=== PATIENT | male | born 1955 | race Caucasian/White ===

== ENCOUNTER → 2017-08-10 | Outpatient (CLI) | payer BC ==
[2017-08-10 13:57] LABS: ALBUMIN 3.6 gm/dl (3.4-5.0); ALT/SGPT 32 U/L (12-78); AST/SGOT 19 U/L (15-37); BLOOD UREA NITROGEN 17 mg/dl (7-18); CALCIUM 8.7 mg/dl (8.5-10.1); CARBON DIOXIDE 30 mmol/L (21-32); CREATININE 1.03 mg/dl (0.60-1.40); GLUCOSE,FASTING 106 mg/dl (70-99); POTASSIUM 4.8 mmol/L (3.5-5.1); SODIUM 139 mmol/L (136-145)
[2017-08-10 14:00] LABS: ALKALINE PHOSPHATASE 47 U/L (45-117); CHOLESTEROL 196 mg/dl (0-200); LDL CHOLESTEROL CALCULATED 105 mg/dl; TOTAL PROTEIN 7.6 gm/dl (6.4-8.2)
== END | disposition home or self-care (01) ==
LOC: C.LABPBG 09:17
PROVIDERS: ATTEND Physician Assistant
DX: Z00.00 Encounter for general adult medical examination without abnormal findings (principal)

== ENCOUNTER → 2017-08-14 | Outpatient (CLI) | payer BC ==
[2017-08-14 13:09] LABS: HEMOGLOBIN A1C 5.4 % (4.5-5.6)
== END | disposition home or self-care (01) ==
LOC: C.LABPBG 09:49
PROVIDERS: ATTEND Internal Medicine
DX: R73.01 Impaired fasting glucose (principal)

== ENCOUNTER → 2017-10-26 | Outpatient (CLI) | payer OTHER ==
--- NOTE | 2017-10-27 13:26 | POLYSOMNOGRAPH REPORT ---
CLINICAL DATA: A 62-year-old male with BMI of [address] Richard Gloria with symptoms of snoring and fatigue. His Amo sleepiness score was 10/24. On the evening of 10/26/2017, a home sleep apnea test was performed using a [employer] type 3 monitor. RECORDING RESULTS: Total recording time was 10 hours. Patient's monitoring time and estimated sleep time was 10 hours. RESPIRATORY DATA: Moderate sleep apnea was documented. The ONEAL was 26. There were 83 obstructive apneic episodes and 177 hypopneic episodes recorded. The longest respiratory event was 49 seconds. OXIMETRY DATA: Nocturnal hypoxemia was seen. Oxygen donna was 74%. Mean saturation was 92%. Time below 89% was 44 minutes. HEART RATE DATA: Heart rates ranged from 61-74 beats per minute. SNORING DATA: Snoring was recorded throughout the night. SPINDLE SANDER'S COMMENTS: The patient said he did not sleep well and was not sure how much sleep he actually got. IMPRESSION: Moderate sleep apnea/hypopnea with an ONEAL of 26 with nocturnal hypoxemia. RECOMMENDATIONS: The patient may benefit from a repeat sleep study with CPAP, use of auto CPAP, or use of an oral appliance. Clinical correlation is needed. Sleep medicine consultation may be of benefit. MARTIN
== END | disposition home or self-care (01) ==
LOC: C.NEUR 08:35
PROVIDERS: ATTEND Internal Medicine
DX: G47.30 Sleep apnea, unspecified (principal); Z68.42 Body mass index [BMI] 45.0-49.9, adult; R53.82 Chronic fatigue, unspecified; R06.83 Snoring

== ENCOUNTER 2024-04-15 08:48 | Inpatient (IN) ==
--- NOTE | 2024-04-15 09:05 | Emergency Department Note ---
Impression & Plan Abdominal pain, acute, epigastric, Transaminitis, Total bilirubin, elevated ED Provider Note HISTORY OF PRESENT ILLNESS: Patient is a 69-year-old male presenting with chest pain and shortness of breath. Patient reports that he woke up this morning and he felt very nauseous and had substernal chest pressure. He states it felt like someone was sitting on his chest. He states he still having the chest pressure, but it is alleviated some from earlier. He reports that he thought he was going to vomit but has not. He states he felt short of breath with the chest pain. He denies ever having symptoms like this before. Denies any DVT or PE history. Denies any history of cardiac stents. Is not on any anticoagulation or antiplatelet therapy. He currently is complaining of nausea and 5 out of 10 chest pressure. He denies any headache or changes in vision. He locates the chest pain to the substernal and epigastric region. He denies any radiation of the pain. Denies any abdominal pain. Denies any diarrhea. ROS: as above PHYSICAL EXAM: Constitutional: Patient appears in no acute distress. Morbidly obese HENT: Head: Normocephalic and atraumatic. Eyes: EOMI, PERRL Mouth/Throat: Mucous membranes moist. Neck: Trachea midline. Neck supple. Cardiovascular: RRR, No murmurs, rubs or gallops. Intact distal pulses. Pulmonary/Chest: No respiratory distress. Breath sounds clear and equal bilaterally. No wheezes or rales. Abdominal: Abdomen soft, no rebound or guarding. Epigastric TTP Musculoskeletal: No edema, tenderness or deformity noted. Skin: Warm and dry. No rash, erythema, pallor or cyanosis Psychiatric: Appropriate mood and affect for situation. Neurological: Alert and keenly responsive. CN II-XII grossly intact, moving all extremities equally and fully. MDM: - Vitals signs showed hypertension - History obtained via patient. History as above. - Chronic conditions affecting care: morbid obesity; HTN; HLD; primary lateral sclerosis - Differential diagnoses include, but are not limited to: Acute coronary syndrome; pulmonary embolism; dissection; tension pneumothorax; esophageal rupture; pneumonia; cholecystitis - Order placed for continuous cardiac monitoring. At this time, monitor showed rate of 73 bpm with normal sinus rhythm, per my interpretation. - External medical records reviewed. [facility] wellness visit note dated 03/08/2024 was reviewed. Patient was seen for his annual wellness examination. - EKG interpreted by myself showed normal sinus rhythm. Rate 75 bpm. QT 380. No acute ischemic changes. - Given 4 mg IV zofran and 4 mg IV morphine for nausea and pain management. - Laboratory workup interpreted by myself showed normal WBC; normal PT/INR; slight hyponatremia (Na 1330; transaminitis (AST 131; ALT 115); elevated total bilirubin (2.0); normal troponin; normal BNP; normal lipase - CXR negative for pneumonia, per my interpretation - Viral respiratory panel negative - CT abdomen/pelvis with IV contrast ordered given patient's transaminitis and concern for potential acute cholecystitis versus choledocholithiasis. - US gallbladder showed stones and sludge within the gallbladder that is distended. No sonographic evidence of acute cholecystitis no biliary ductal dilatation - CT abdomen/pelvis with IV contrast negative for acute pathology. Noted to have a stable distended gallbladder and a small gallstone per radiology. - Discussed case with ES on for general surgery, Connie Christopher, at 11:25. She agreed with right upper quadrant ultrasound. Reports the patient will likely need an MRCP for evaluation of choledocholithiasis given the elevated total bilirubin and LFTs. Recommended admission to medicine with GI consultation, obtainment of MRCP and surgery will follow. - Given IV zosyn in ER. - MRCP ordered - Discussion was had with leather case finisher about patient's case and need for admission - Hospitalist consulted for admission - [facility] 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 Hypertension (Acute) Hyperlipidemia (Acute) Chronic fatigue syndrome (Acute) BMI 45.0-49.9, adult (Acute) Apnea, sleep (Acute) CPAP Medical History B12 deficiency Heavy alcohol use Seizure Surgical History Hx of vasectomy History of tooth extraction History of colonoscopy Family History Mother Lung cancer Father Cardiac disorder Unknown Myocardial infarction Other No family history of adverse response to anesthesia Denies family history of Ovarian cancer Prostate cancer Breast cancer Colorectal cancer Social History Smoking Status: Never smoker Tobacco Type: Smokeless Tobacco (Dip or Chew) Age Started Using Tobacco: 14; Age Quit Using Tobacco: 23; packs per day: 0.5; Second Hand Exposure: No (parent smoked); Do You Dip or Chew Tobacco: Yes; Hx Alcohol Use: Yes (heavy drinker) Alcohol type: beer Alcohol Intake Frequency Comment: 3-4 BEERS PER DAY Hx Substance Use: No Preferred Language: Turkish Communication Ability: Effective Visual Impairment: No Limitations Hearing Ability: Normal High Court Justice Required: No Beliefs That Will Affect Care: None marital status: Current Living Situation: Spouse current occupational status: retired and disabled Feels Safe at Home: Yes Childhood Exposure to Second-Hand Smoke: No Diet: regular Diet Comment: regular caffeine: Yes during the past year weight has: increased > 10 lbs Dental Care, Regularly: Yes Physical Activity Frequency: Other Physical Activity Frequency Comment: LIMITED BY PHYSICAL CONDITION - DISABLED. Seatbelt Use: always Sunscreen Use: No Assistive Devices: Glasses Allergies Allergies Allergy/AdvReac Type Severity Reaction Status Date / Time aspirin Allergy Intermediate Hives Verified 04/04/24 08:43 NSAIDS (Non-Steroidal Allergy Intermediate Hives Verified 04/04/24 08:43 Anti-Inflamma Home Meds Home Medications Medication Instructions Recorded Confirmed cholecalciferol (vitamin D3) 25 25 mcg PO DAILY 10/05/23 04/04/24 mcg (1,000 unit) capsule gabapentin 300 mg capsule 300 mg PO DAILY 04/04/24 04/04/24 Previous Rx's Medication Instructions Recorded clotrimazole-betamethasone 1 1 applic topical DAILY PRN Rash 10/13/22 %-0.05 % topical cream #45 grams valacyclovir 500 mg tablet 500 mg PO TID PRN herpes simplex 10/13/22 #15 tabs rosuvastatin 10 mg tablet 10 mg PO DAILY #90 tabs 07/30/23 lisinopril 10 mg tablet 10 mg PO QAM #90 tabs 10/05/23 Results & Data (ED) Vital Signs Vital Signs - 24 hr 04/15/24 09:01 04/15/24 09:19 04/15/24 09:32 Temperature 36.5 C Temperature Source Temporal Artery Scan Pulse Rate 80 77 Pulse Rate [Right Finger] Respiratory Rate 18 Respiratory Effort / Characteristics Non-Labored Spontaneous Respiratory Depth Normal Respiratory Pattern Blood Pressure 168/87 H Blood Pressure [Right Arm] Blood Pressure Mean 114 Blood Pressure Mean [Right Arm] Blood Pressure Position Sitting Pulse Oximetry 96 96 Oxygen Delivery Method Room Air Room Air Sepsis Recent Fever Within 48 Hours No Sepsis New/Unexplained Change in Mental Status N/A Sepsis Action Taken by Nursing No Action Required 04/15/24 10:03 04/15/24 10:15 04/15/24 11:28 Temperature Temperature Source Pulse Rate Pulse Rate [Right Finger] 72 72 68 Respiratory Rate 20 20 20 Respiratory Effort / Characteristics Non-Labored Spontaneous Non-Labored Spontaneous Non-Labored Spontaneous Respiratory Depth Normal Normal Normal Respiratory Pattern Regular Regular Regular Blood Pressure Blood Pressure [Right Arm] 190/78 H 116/66 130/61 Blood Pressure Mean Blood Pressure Mean [Right Arm] 115 82 84 Blood Pressure Position Pulse Oximetry 97 96 97 Oxygen Delivery Method Room Air Room Air Room Air Sepsis Recent Fever Within 48 Hours Sepsis New/Unexplained Change in Mental Status Sepsis Action Taken by Nursing Laboratory Data 04/15/24 09:22 04/15/24 09:22 Lab Results 04/15/24 04/15/24 Range/Units 09:20 09:22 WBC 6.34 (4.8-10.8) K/ul RBC 4.90 (4.70-6.10) M/uL Hgb 14.3 (14.0-18.0) g/dl Hct 42.8 (42.0-52.0) % MCV 87.3 (80.0-100.0) fL MCH 29.2 (25.0-34.0) pg MCHC 33.4 (32.0-36.0) g/dL RDW Std Deviation 45.1 (36.4-46.3) fL RDW Coeff of Roseann 14.0 (11.5-14.5) % Plt Count 207 (130-400) K/uL MPV 9.7 (9.4-12.4) fL Immature Gran % (Auto) 0.3 % Neut % (Auto) 73.8 % Lymph % (Auto) 13.6 % Willacy % (Auto) 10.1 % Eos % (Auto) 1.6 % Baso % (Auto) 0.6 % Neut # (Auto) 4.68 (1.40-6.50) K/uL Lymph # (Auto) 0.86 L (1.20-3.40) K/uL Willacy # (Auto) 0.64 H (0.11-0.59) K/uL Eos # (Auto) 0.10 (0.00-0.50) K/uL Baso # (Auto) 0.04 (0.00-0.20) K/uL Immature Gran # (Auto) 0.02 (0.01-0.20) K/uL PT 10.7 (9.0-12.0) Seconds INR 1.0 (0.9-1.1) VBG pH 7.34 L (7.36-7.41) VBG pCO2 52 H (38-50) mmHg VBG pO2 28 mmHg VBG HCO3 28 mmol/L VBG O2 Saturation < 60.0 % VBG Base Excess 1.4 mEq/L Sodium 133 L (136-145) mmol/L Potassium 4.4 (3.5-5.1) mmol/L Chloride 99 (98-107) mmol/L Carbon Dioxide 27 (21-32) mmol/L Anion Gap 7 (3-11) BUN 20 (6-23) mg/dl Creatinine 1.06 (0.6-1.4) mg/dl Est Cr Clr Drug Dosing 94.4 ml/min eGFR 75.03 BUN/Creatinine Ratio 18.9 (10-20) Glucose 167 H (70-99(Fasting)) mg/dl Calcium 9.1 (8.6-10.3) mg/dl Magnesium 2.1 (1.7-2.4) mg/dl Total Bilirubin 2.0 H (0.2-1.0) mg/dl AST 131 H (13-39) U/L ALT 115 H (7-52) U/L Alkaline Phosphatase 77 (34-104) U/L Troponin I High Sens 5.6 (0-20) pg/ml B-Natriuretic Peptide 30 (0-100) pg/ml Total Protein 7.2 (6.0-8.3) gm/dl Albumin 4.2 (3.4-5.0) gm/dl Globulin 3.0 (2.5-4.0) gm/dl Albumin/Globulin Ratio 1.4 (0.9-2) Lipase 31 (11-82) U/L Adenovirus (PCR) Not Detected (NotDetected) B. pertussis DNA (PCR) Not Detected (NotDetected) B.parapertussis DNA PCR Not Detected (NotDetected) C. pneumoniae DNA (PCR) Not Detected (NotDetected) Coronavirus OC43 (PCR) Not Detected (NotDetected) Coronavirus HKU1 (PCR) Not Detected (NotDetected) Coronavirus 229E (PCR) Not Detected (NotDetected) SARS-CoV-2 (PCR) Not Detected (NotDetected) Coronavirus NL63 (PCR) Not Detected (NotDetected) Human Metapneumovir PCR Not Detected (NotDetected) Influenza Type A (PCR) Not Detected (NotDetected) Influenza Type B (PCR) Not Detected (NotDetected) M. pneumoniae (PCR) Not Detected (NotDetected) Parainfluenza 1 (PCR) Not Detected (NotDetected) Parainfluenza 2 (PCR) Not Detected (NotDetected) Parainfluenza 3 (PCR) Not Detected (NotDetected) Parainfluenza 4 (PCR) Not Detected (NotDetected) RSV (PCR) Not Detected (NotDetected) Entero/Rhino (PCR) Not Detected (NotDetected) Administered Medications Discontinued Medications Piperacillin Sod/Tazobactam Sod (Zosyn) 4.5 gm in 100 mls @ 200 mls/hr IV NOW ONE; Protocol Stop: 04/15/24 11:15 Last Admin: 04/15/24 11:55 Dose: 200 mls/hr Documented By: MARLI Ioversol (Optiray 320 125ml) 119 ml IV ONCE ONE Stop: 04/15/24 10:37 Last Admin: 04/15/24 10:37 Dose: 119 ml Documented By: ALEXSANDER Morphine Sulfate (Morphine Sulfate 4 Mg/Ml 1 Ml Carp\Vial) 4 mg IV NOW STA Stop: 04/15/24 09:52 Last Admin: 04/15/24 10:05 Dose: 4 mg Documented By: MARLI Ondansetron HCl (Ondansetron Inj 2 Mg/Ml 2 Ml Vial) 4 mg IV NOW STA Stop: 04/15/24 09:52 Last Admin: 04/15/24 10:04 Dose: 4 mg Documented By: MARLI Imaging Data Radiologist's Impression: Chest X-Ray 04/15/24 08:59 XR chest 1V portable CLINICAL HISTORY: Dyspnea COMPARISON STUDY: 10/05/2023 FINDINGS: Stable mild cardiomegaly without pulmonary vascular congestion. No effusion, consolidation, or pneumothorax. IMPRESSION: No acute findings. ACT 112: Negative or not required by law. Electronically signed by: Santiago Irby M.D. 04/15/2024 9:41 AM Abdomen/Pelvis CT 04/15/24 10:[address] WITH IV CONTRAST CT DOSE: 1493.32 mGy.cm HISTORY: epigastric pain; transaminitis TECHNIQUE: Multiaxial CT images of the abdomen and pelvis were performed following the IV administration of 119 cc of Optiray, A dose lowering technique was utilized adhering to the principles of ALARA. COMPARISON STUDY: 10/05/2023 FINDINGS: ABDOMEN: There is mild fatty liver. Stable small splenic cyst. Stable small gallstone. Stable gallbladder distention. No evidence of acute cholecystitis. Otherwise the liver, spleen, pancreas, and adrenal glands are unremarkable. Stable bilateral renal cysts, largest on the left measures 7 cm. No hydronephrosis or renal calculi. There are scattered atherosclerotic calcifications. No abdominal aortic aneurysm. Pelvis: Prostate is enlarged. Urinary bladder is nondistended. There is mild retained stool. No bowel inflammation or obstruction. Normal appendix. No free fluid, free air, or abscess. No enlarged adenopathy. Osseous structures: There is mild chronic appearing height loss at the L1 vertebral body. There are mild lumbar spine degenerative changes. IMPRESSION: No acute findings. ACT 112: Negative or not required by law. The above report was generated using voice recognition software. It may contain grammatical, syntax or spelling errors. Electronically signed by: Santiago Irby M.D. 04/15/2024 11:12 AM Gallbladder Ultrasound 04/15/24 10:45 US gallbladder CLINICAL HISTORY: Right upper quadrant pain. COMPARISON STUDY: CT of the abdomen and pelvis performed earlier today and October 05, 2023. FINDINGS: Hepatic echogenicity is diffusely increased. There is no biliary ductal dilatation. Common bile duct measures 6 mm in caliber. The gallbladder is distended. There are stones and sludge within the gallbladder. There is no gallbladder wall thickening. No sonographic Sorto sign was elicited. The pancreas is obscured by overlying bowel gas. There is no right hydronephrosis. Exophytic 1.8 cm right upper pole renal cyst is present centrally noted. IMPRESSION: 1. Stones and sludge within the gallbladder. Distended gallbladder, similar to prior CT. No sonographic evidence for acute cholecystitis. 2. No biliary ductal dilatation. 3. Hepatic steatosis. ACT 112: Negative or not required by law. Electronically signed by: Anthony You M.D. 04/15/2024 12:08 PM Discharge Plan Visit Data Chief Complaint: Chest Pain Stated Complaint: NAUSEA, SWEATS, SOB ED Provider: Lexi Carrasquillo Discharge Problem: Abdominal pain, acute, epigastric, Transaminitis, Total bilirubin, elevated Forms Stand Alone Forms: Everyday Health Prescriptions Prescriptions: No Action clotrimazole-betamethasone 1-0.05 % cream 1 applic TOP DAILY PRN (Reason: Rash) Qty: 45 3RF valacyclovir 500 mg tablet 500 mg PO TID PRN (Reason: herpes simplex) Qty: 15 2RF rosuvastatin 10 mg tablet 10 mg PO DAILY Qty: 90 3RF cholecalciferol (vitamin D3) 25 mcg (1,000 unit) capsule 25 mcg PO DAILY lisinopril 10 mg tablet 10 mg PO QAM Qty: 90 3RF Rx Instructions: TAKE 1 TABLET EVERY DAY gabapentin 300 mg capsule 300 mg PO DAILY Referrals Referrals: Brando Mueller CRNP [Primary Care Provider] -
[2024-04-15 09:38] LABS: Base Excess VBG 1.4 mEq/L; HCO3 VBG 28 mmol/L; Oxygen Saturation VBG < 60.0 %; PCO2 VBG 52 mmHg (38-50); PO2 VBG 28 mmHg; pH VBG 7.34 (7.36-7.41)
--- NOTE | 2024-04-15 09:43 | XRay Report ---
XR chest 1V portable CLINICAL HISTORY: Dyspnea COMPARISON STUDY: 10/05/2023 FINDINGS: Stable mild cardiomegaly without pulmonary vascular congestion. No effusion, consolidation, or pneumothorax. IMPRESSION: No acute findings. ACT 112: Negative or not required by law. Electronically signed by: Santiago Irby M.D. 04/15/2024 9:41 AM
[2024-04-15 09:49] LABS: Basophils # (auto) 0.04 K/uL (0.00-0.20); Basophils % (auto) 0.6 %; Eosinophils % (auto) 1.6 %; Hematocrit (blood only) 42.8 % (42.0-52.0); Hemoglobin 14.3 g/dl (14.0-18.0); Immature Granulocytes # (auto) 0.02 K/uL (0.01-0.20); Immature Granulocytes % (auto) 0.3 %; Lymphocytes # (auto) 0.86 K/uL (1.20-3.40); Lymphocytes % (auto) 13.6 %; Mean Corpuscular Hemoglobin 29.2 pg (25.0-34.0); Mean Corpuscular Hgb Conc 33.4 g/dL (32.0-36.0); Mean Corpuscular Volume 87.3 fL (80.0-100.0); Mean Platelet Volume 9.7 fL (9.4-12.4); Monocytes # (auto) 0.64 K/uL (0.11-0.59); Monocytes % (auto) 10.1 %; Neutrophils # (auto) 4.68 K/uL (1.40-6.50); Neutrophils % (auto) 73.8 %; Platelet Count 207 K/uL (130-400); RDW Standard Deviation 45.1 fL (36.4-46.3); White Blood Count 6.34 K/ul (4.8-10.8)
[2024-04-15 10:03] LABS: Albumin Globulin Ratio 1.4 (0.9-2); Albumin Level 4.2 gm/dl (3.4-5.0); BUN Creatinine Ratio 18.9 (10-20); Calcium 9.1 mg/dl (8.6-10.3); Creatinine Clr Calc Pharmacy 94.4 ml/min; Magnesium 2.1 mg/dl (1.7-2.4); Potassium 4.4 mmol/L (3.5-5.1); Total Protein 7.2 gm/dl (6.0-8.3)
[2024-04-15] MEDS: ONDANSETRON INJ 2 MG/ML 2 ML VIAL IV STA (10:04)
[2024-04-15] MEDS: MoRPHine SULFATE 4 MG/ML 1 ML CARP\\VIAL IV STA (10:05)
[2024-04-15 10:08] LABS: Troponin I High Sensitivity 5.6 pg/ml (0-20)
[2024-04-15 10:18] LABS: Prothrombin Time 10.7 Seconds (9.0-12.0)
[2024-04-15 10:37] LABS: Adenovirus PCR Not Detected (NotDetected); Bordetella parapertussis PCR Not Detected (NotDetected); Bordetella pertussis PCR Not Detected (NotDetected); Chlamydia pneumoniae PCR Not Detected (NotDetected); Coronavirus 229E PCR Not Detected (NotDetected); Coronavirus CoV-2 (COVID19)PCR Not Detected (NotDetected); Coronavirus HKU1 PCR Not Detected (NotDetected); Coronavirus NL63 PCR Not Detected (NotDetected); Coronavirus OC43PCR Not Detected (NotDetected); Human Metapneumovirus PCR Not Detected (NotDetected); Influenza A PCR Not Detected (NotDetected); Influenza B PCR Not Detected (NotDetected); Mycoplasma pneumoniae PCR Not Detected (NotDetected); Parainfluenza Virus 1 PCR Not Detected (NotDetected); Parainfluenza Virus 2 PCR Not Detected (NotDetected); Parainfluenza Virus 3 PCR Not Detected (NotDetected); Parainfluenza Virus 4 PCR Not Detected (NotDetected); Respiratory Syncytial VirusPCR Not Detected (NotDetected); Rhinovirus/Enterovirus PCR Not Detected (NotDetected)
[2024-04-15] MEDS: OPTIRAY 320 125ml IV ONE (10:37)
--- NOTE | 2024-04-15 11:14 | CT Scan Report ---
ABDOMEN AND PELVIS CT WITH IV CONTRAST CT DOSE: 1493.32 mGy.cm HISTORY: epigastric pain; transaminitis TECHNIQUE: Multiaxial CT images of the abdomen and pelvis were performed following the IV administrat ion of 119 cc of Optiray, A dose lowering technique was utilized adhering to the principles of ALARA . COMPARISON STUDY: 10/05/2023 FINDINGS: ABDOMEN: There is mild fatty liver. Stable small splenic cyst. Stable small gallstone. Stable gallbla dder distention. No evidence of acute cholecystitis. Otherwise the liver, spleen, pancreas, and adren al glands are unremarkable. Stable bilateral renal cysts, largest on the left measures 7 cm. No hydro nephrosis or renal calculi. There are scattered atherosclerotic calcifications. No abdominal aortic a neurysm. Pelvis: Prostate is enlarged. Urinary bladder is nondistended. There is mild retained stool. No bowel inflammation or obstruction. Normal appendix. No free fluid, free air, or abscess. No enlarged adeno primo. Osseous structures: There is mild chronic appearing height loss at the L1 vertebral body. There are m ild lumbar spine degenerative changes. IMPRESSION: No acute findings. ACT 112: Negative or not required by law. The above report was generated using voice recognition software. It may contain grammatical, syntax o r spelling errors. Electronically signed by: Santiago Irby M.D. 04/15/2024 11:12 AM
[2024-04-15] MEDS: PIPERACILLIN/TAZOBACTAM 4.5 GM/100 ML BAG IV ONE (11:55)
--- NOTE | 2024-04-15 12:06 | History & Physical Report ---
Date of Service April 15, 2024 Assessment & Plan (1) RUQ pain: (2) Transaminitis: (3) Chest pain: (4) Hyponatremia: (5) Apnea, sleep: Plan Santiago is a 69M with a PMHx Obesity, BPH, prediabetes (diet controlled), progressive lateral sclerosis, hypertension, hyperlipidemia, EtOH use and JAGDEEP - presents with chest/epigastric pain that awoke him from sleep around 6am, that has greatly improved since arrival to the ER. Admitted for futher gallbladder workup/monitoring giving increased LFTs. #RUQ pain/LFT elevations CT showing gallstone with distended gallbladder, but without acute cholecystitis. US showing stones and sludge, no acute Cholecystitis. No leukocytosis. Lipase WNL. TB 2.0, AST 131, ALT 115 but AlkPhos WNL - plan to trend in AM Given negative imaging, check monospot General Surgery consulted - recommend MRCP but patient refusing MRI (even with premedication) - plan to trend LFTs, Keep NPO No CHF hx, IVFs while NPO AM CBC,CMP #Chest pain Awoke him up from sleep, with associated shortness of breath. Improved by the time he arrived to the ER. Trop negative, EKG without ST elevations. Biofire negative. 2 hour repeat trop pending #Hyponatremia Mild at 133 on admission, asymptomatic Seems to be chronic, trend #JAGDEEP Uses CPAP at home, does not want to bring in home machine. Declining hospital issued CPAP. HTN - continue lisinopril HLD - hold statin Dispo: admit to med/tele DVT Proh: chemical held with possible OR, SCDs Discussed case with Connie, Surgery ES updated at bedside History of Present Illness Primary Care Provider: REYNALDO Oshea Santiago is a 69M with a PMHx Obesity, BPH, prediabetes (diet controlled), progressive lateral sclerosis, hypertension, hyperlipidemia, EtOH use and JAGDEEP - presents with chest/epigastric pain that awoke him from sleep around 6am. States he woke up with severe chest pain and difficulty breathing, that improved on his way to the ER. Also has nausea that has resolved with Zofran. No chest pain or shortness of breath reported during my interview, he is on room air. Does report he still has some residual right sided pain from fall resulting in rib fractures, but usually not this signficant. States that he had pork and potatoes last night for dinner. No history of gallstone problems. He did not eat this morning but he did take his morning lisinopril. He desires to be full code ED course: Zofran 4 mg IV x 1 Morphine 4 mg IV x 1 Zosyn x 1 Allergies Allergy/AdvReac Type Severity Reaction Status Date / Time aspirin Allergy Intermediate Hives Verified 04/15/24 12:37 NSAIDS (Non-Steroidal Allergy Intermediate Hives Verified 04/15/24 12:37 Anti-Inflamma tizanidine AdvReac Unknown Unknown - Unverified 04/15/24 12:37 On file w/ [facility] Home Medications Medication Instructions Recorded Confirmed Type rosuvastatin 10 mg tablet 10 mg PO DAILY #90 tabs 07/30/23 04/15/24 Rx cholecalciferol (vitamin D3) 25 25 mcg PO DAILY 10/05/23 04/15/24 History mcg (1,000 unit) capsule lisinopril 10 mg tablet 10 mg PO QAM #90 tabs 10/05/23 04/15/24 Rx gabapentin 300 mg capsule 300 mg PO BID 04/04/24 04/15/24 History clotrimazole-betamethasone 1 0 applic topical DAILY PRN Rash 04/15/24 04/15/24 History %-0.05 % topical cream valacyclovir 500 mg tablet 0 mg PO TID PRN herpes simplex 04/15/24 04/15/24 History Past Med/Surg History Problem List Hyponatremia Chest pain RUQ pain Total bilirubin, elevated (Acute) Transaminitis (Acute) Abdominal pain, acute, epigastric (Acute) BPH NOS w ur obs/LUTS Gross hematuria 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 Hypertension (Acute) Hyperlipidemia (Acute) Chronic fatigue syndrome (Acute) BMI 45.0-49.9, adult (Acute) Apnea, sleep (Acute) CPAP Medical History B12 deficiency Heavy alcohol use Prev drank 10-12 beers a day, Now 2-3 / day. Seizure had 1--one time d/t colonoscopy prep 5 yrs ago--no neurologist, no meds, pt stated it was due to dehydration Surgical History Hx of vasectomy History of tooth extraction History of colonoscopy Hyperplastic polyp x 2, Tubular Adenoma x 1. Family History Mother Lung cancer Father Cardiac disorder Unknown Myocardial infarction Other No family history of adverse response to anesthesia Denies family history of Ovarian cancer Prostate cancer Breast cancer Colorectal cancer Social History Smoking Status: Never smoker Tobacco Type: Smokeless Tobacco (Dip or Chew) Age Started Using Tobacco: 14; Age Quit Using Tobacco: 23; packs per day: 0.5; Second Hand Exposure: No (parent smoked); Do You Dip or Chew Tobacco: Yes; Hx Alcohol Use: Yes (heavy drinker) Alcohol type: beer Alcohol Intake Frequency Comment: 3-4 BEERS PER DAY Hx Substance Use: No Preferred Language: Swedish Communication Ability: Effective Visual Impairment: No Limitations Hearing Ability: Normal Stock Car Driver Required: No Beliefs That Will Affect Care: None marital status: Current Living Situation: Spouse current occupational status: retired and disabled Feels Safe at Home: Yes Childhood Exposure to Second-Hand Smoke: No Diet: regular Diet Comment: regular caffeine: Yes during the past year weight has: increased > 10 lbs Dental Care, Regularly: Yes Physical Activity Frequency: Other Physical Activity Frequency Comment: LIMITED BY PHYSICAL CONDITION - DISABLED. Seatbelt Use: always Sunscreen Use: No Assistive Devices: Glasses Review of Systems Review of Systems: All systems reviewed & are unremarkable except as noted in Subjective Physical Exam Physical Exam: General: NAD, VS as above Resp: normal respiratory effort, lungs clear to auscultation CV: RRR, no murmur, Abd: normal bowel sounds, RUQ tendness with guarding, no rebound Extremities: Moves all extremities, no edema Neuro: A&O x3, Results & Data Results & Data Vital Signs (Past 12 Hours) Vital Signs Temp Pulse Pulse Resp BP BP Pulse Ox 04/15/24 11:28 68 20 130/61 97 04/15/24 10:15 72 20 116/66 96 04/15/24 10:03 72 20 190/78 H 97 04/15/24 09:32 96 04/15/24 09:19 77 04/15/24 09:01 97.7 F 80 18 168/87 H 96 O2 Del Method 04/15/24 11:28 Room Air 04/15/24 10:15 Room Air 04/15/24 10:03 Room Air 04/15/24 09:32 Room Air 04/15/24 09:19 04/15/24 09:01 Room Air Laboratory Results cbc, chemistry, lfts, lipase, UA, biofire, troponin reviewed Diagnostic Findings CT A/P reviewed RUQ US reviewed Supervising Physician Co-Signing Physician Notes I have personally seen, evaluated and examined the patient. I have also personally discussed the management of the patient with the resident physician/ES and I agree with the exam findings documented in the history and physical examination and the documented assessment and plan unless otherwise stated below. Brief Exam: In general pleasant 69-year-old male. Accompanied by his at the time of my examination. Reviewed the case as discussed above with the patient. We suspect possible early acute cholecystitis. Will continue Zosyn. We reoffered MRI. The patient adamantly refuses. He was very pleasant with me however states he had a very bad experience with an MRI of the spine before. Surgeries evaluated the patient keep patient n.p.o. and check track his LFTs and continue antibiotic therapy. In addition we have offered a CPAP to the patient from the hospital here. He refuses that as well risk and benefits discussed with the patient including respiratory failure and . HEENT: Normocephalic atraumatic. Neck: Greater than 20 inches in circumference consistent with his sleep apnea history. Heart: Regular rate and rhythm. Lungs: Diminished due to body habitus but clear. Abdomen: Obese soft tender to palpation right upper quadrant. No rebound. No right peritoneal sign. Positive bowel sounds. Remaining abdominal exam in terms of organomegaly and abdominal bruits is equivocal given his body habitus. Extremities: Intact with no significant edema Neurologically: Alert and oriented x 3. We did have a conversation about his career. 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 Plan: As discussed above. Please refer to orders for further planning. PG Care Time/CCT Total # of Minutes Spent Total Time Spent with Patient: Total time spent is greater than 50% in coordination of care (as documented) at patient's floor/unit and/or counseling patient: Coding Level of Care Code 70448 INT INP/OBS CARE 3/75MIN Diagnoses RUQ pain R10.11 Transaminitis R74.01 Chest pain R07.9 Hyponatremia E87.1 Apnea, sleep G47.30
--- NOTE | 2024-04-15 12:10 | Ultrasound Report ---
US gallbladder CLINICAL HISTORY: Right upper quadrant pain. COMPARISON STUDY: CT of the abdomen and pelvis performed earlier today and October 05, 2023. FINDINGS: Hepatic echogenicity is diffusely increased. There is no biliary ductal dilatation. Common bile duct measures 6 mm in caliber. The gallbladder is distended. There are stones and sludge within the gallbladder. There is no gallbladder wall thickening. No sonographic Sorto sign was elicited. Th e pancreas is obscured by overlying bowel gas. There is no right hydronephrosis. Exophytic 1.8 cm rig ht upper pole renal cyst is present centrally noted. IMPRESSION: 1. Stones and sludge within the gallbladder. Distended gallbladder, similar to prior CT. No sonograp hic evidence for acute cholecystitis. 2. No biliary ductal dilatation. 3. Hepatic steatosis. ACT 112: Negative or not required by law. Electronically signed by: Anthony You M.D. 04/15/2024 12:08 PM
--- NOTE | 2024-04-15 12:15 | Surgery Consultation ---
Date of Consultation April 15, 2024 Assessment & Plan (1) Abdominal pain, acute, epigastric: This is a 69yM with a PMH of HTN, HLD, JAGDEEP, primary lateral sclerosis, who presents to the [facility] on 04/15/24 with complaints of chest pain/epigastric pain and nausea. Patient states he woke up this AM at 6am with these symptoms, in addition to feeling sweaty and nauseated. He presented to the ER where underwent a CT a/p showed stable small gallstone, stable gallbladder distention, without evidence of acute cholecystitis. Follow up with a RUQ US showed stones and sludge within a distended gallbladder No sonographic evidence for acute cholecystitis. No biliary ductal dilatation. Imaging consistent with a distended gallbladder and stones since at least 2022.Patient reports he has know about his gallstones over the last 6 months when he was imaged after falling and had a R sided rib fracture. He states he's had pain in his R side on and off since that fall. He denies any issues with pain related to food intake and has no worsening pain/symptoms with eating fatty/greasy/spicy meals. He last ate at dinner time yesterday pork chops, with mushroom gravy, and hash brown casserole, and a homemade pepperoni stick. The patient endorses normal BMs (last yesterday) & no urinary complaints. He endorsed some SOB with the pain this AM that's improved and some low back pain. He denies any PSH on the abdomen. Today lab work reveals a normal WBC 6.3, Hbg 14, Cr 1. LFTs show elevated Tb 2, AST 131, ALT 115, Lipa se 31, AlkP 77. His vital signs are stable. On exam patient is resting comfortably. He has an obese abdomen. He has some mild discomfort in the RUQ/epigastric regions to palpation. Given his increase in Tb and AST/ALT we recommended an MRCP be obtained to evaluate for choledocholithiasis. unfortunately patient had a panic attack in the past after undergoing an MRI for workup of his PLS. Despite offerings to provide anti-anxiety meds to pre- medicate prior to imaging he does not wish to proceed with this. In the meantime patient is going to be admitted under medicine and we will recheck his LFTs in the AM. I have added on a direct bilirubin for further information. Keep NPO for now and will follow. (2) Transaminitis: (3) Total bilirubin, elevated: Supervising Physician Co-Signing Physician Notes Patient seen and examined, labs and imaging reviewed, agree with above. Presented with chest pain rating to his back. Imaging showed distended gallbladder with cholelithiasis but no evidence of cholecystitis. Tender to palpation in epigastrium and right upper quadrant. Normal WBC, bilirubin 2, direct bilirubin 1.6, AST and ALT elevated. No ductal dilatation on ultrasound. This is concerning for choledocholithiasis given his labs. We are recommending an MRCP, however the patient had a panic attack during his last MRI several years ago and is refusing to undergo the procedure without any type of sedation. We offered a benzodiazepine, but the patient wants to be completely out. GI was consulted, unlikely we will be able to coordinate MRCP with sedation over the weekend. We will see what his labs do in the morning, if his bilirubin and LFTs are worsening, he will likely need transferred for evaluation for ERCP. He may have clear liquids today. If LFTs improving, will consider cholecystectomy over the next few days History of Present Illness History of Present Illness This is a 69yM with a PMH of HTN, HLD, JAGDEEP, primary lateral sclerosis, who presents to the [facility] ED on 04/15/24 with complaints of chest pain/epigastric pain and nausea. Patient states he woke up this AM at 6am with these symptoms. In addition to his chest pain/epigastric pain he felt sweaty and nauseated. Because of his symptoms he presented to the ER for evaluation. He underwent a CT a/p showed stable small gallstone, stable gallbladder distention, without evidence of acute cholecystitis. Follow up with a RUQ US showed stones and sludge within a distended gallbladder No sonographic evidence for acute cholecystitis. No biliary ductal dilatation. Patient reports he has know about his gallstones over the last 6 months when he was imaged after falling and had a R sided rib fracture. He states he's had pain in his R side on and off since that fall. He denies any issues with pain related to food intake and has no worsening pain/symptoms with eating fatty/greasy/spicy meals. He last ate at dinner time yesterday pork chops, with mushroom gravy, and hash brown casserole, and a homemade pepperoni stick. The patient endorses normal BMs (last yesterday) & no urinary complaints. He endorsed some SOB with the pain this AM that's improved and some low back pain. He denies any PSH on the abdomen. He feels mildly better after receiving pain and anti nausea meds. Allergies Allergy/AdvReac Type Severity Reaction Status Date / Time aspirin Allergy Intermediate Hives Verified 04/15/24 12:37 NSAIDS (Non-Steroidal Allergy Intermediate Hives Verified 04/15/24 12:37 Anti-Inflamma tizanidine AdvReac Unknown Unknown - Unverified 04/15/24 12:37 On file w/ [facility] Home Medications Medication Instructions Recorded Confirmed Type rosuvastatin 10 mg tablet 10 mg PO DAILY #90 tabs 07/30/23 04/15/24 Rx cholecalciferol (vitamin D3) 25 25 mcg PO DAILY 10/05/23 04/15/24 History mcg (1,000 unit) capsule lisinopril 10 mg tablet 10 mg PO QAM #90 tabs 10/05/23 04/15/24 Rx gabapentin 300 mg capsule 300 mg PO BID 04/04/24 04/15/24 History clotrimazole-betamethasone 1 0 applic topical DAILY PRN Rash 04/15/24 04/15/24 History %-0.05 % topical cream valacyclovir 500 mg tablet 0 mg PO TID PRN herpes simplex 04/15/24 04/15/24 History Patient History Medical History B12 deficiency Heavy alcohol use Prev drank 10-12 beers a day, Now 2-3 / day. Seizure had 1--one time d/t colonoscopy prep 5 yrs ago--no neurologist, no meds, pt stated it was due to dehydration Surgical History Hx of vasectomy History of tooth extraction History of colonoscopy Hyperplastic polyp x 2, Tubular Adenoma x 1. Family History Mother Lung cancer Father Cardiac disorder Unknown Myocardial infarction Other No family history of adverse response to anesthesia Denies family history of Ovarian cancer Prostate cancer Breast cancer Colorectal cancer Social History Smoking Status: Never smoker Tobacco Type: Smokeless Tobacco (Dip or Chew) Age Started Using Tobacco: 14; Age Quit Using Tobacco: 23; packs per day: 0.5; Second Hand Exposure: No; Do You Dip or Chew Tobacco: Yes; Tobacco Cessation Education Requested by Patient: No Hx Alcohol Use: Yes Alcohol type: beer Alcohol Intake Frequency Comment: 3-4 BEERS PER DAY Hx Substance Use: No Preferred Language: Hungarian Communication Ability: Effective Visual Impairment: No Limitations Hearing Ability: Normal Taproom Attendant Required: No Beliefs That Will Affect Care: None marital status: Current Living Situation: Spouse current occupational status: retired and disabled Other Information That Helps Us Care for You: No Feels Safe at Home: Yes Safety Concerns: Feels Safe At This Time Childhood Exposure to Second-Hand Smoke: No Diet: regular Diet Comment: regular caffeine: Yes during the past year weight has: increased > 10 lbs Dental Care, Regularly: Yes Physical Activity Frequency: Other Physical Activity Frequency Comment: LIMITED BY PHYSICAL CONDITION - DISABLED. Seatbelt Use: always Sunscreen Use: No Assistive Devices: Cane, CPAP and Glasses Assistive Devices Comment: Relates once in awhile use of cane Review of Systems Constitutional: + sweats Respiratory: + dyspnea (this AM) Cardiovascular: + chest pain Gastrointestinal: + abdominal pain (epigastric pain this A M. ongoing intermittent R sided pain) and + nausea; no vomiting, no change in bowel habits and no blood in stools Genitourinary: no problem reported Musculoskeletal: + back pain (low back pain) Physical Exam Physical Exam: awake/alert, no distress Constitutional: + morbidly obese Respiratory: normal respiratory effort Gastrointestinal (Abdomen): Inspection/Auscultation: abdomen not distended Percussion/Palpation: + abdomen tender (mild discomfort in RUQ/epigastric) and abdomen soft Results & Data Vital Signs (Past 12 Hours) Vital Signs Temp Pulse Pulse Resp BP BP Pulse Ox 04/15/24 11:28 68 20 130/61 97 04/15/24 10:15 72 20 116/66 96 04/15/24 10:03 72 20 190/78 H 97 04/15/24 09:32 96 04/15/24 09:19 77 04/15/24 09:01 97.7 F 80 18 168/87 H 96 O2 Del Method 04/15/24 11:28 Room Air 04/15/24 10:15 Room Air 04/15/24 10:03 Room Air 04/15/24 09:32 Room Air 04/15/24 09:19 04/15/24 09:01 Room Air Diagnostic Findings ABDOMEN AND PELVIS CT WITH IV CONTRAST CT DOSE: 1493.32 mGy.cm HISTORY: epigastric pain; transaminitis TECHNIQUE: Multiaxial CT images of the abdomen and pelvis were performed following the IV administration of 119 cc of Optiray, A dose lowering technique was utilized adhering to the principles of ALARA. COMPARISON STUDY: 10/05/2023 FINDINGS: ABDOMEN: There is mild fatty liver. Stable small splenic cyst. Stable small gallstone. Stable gallbladder distention. No evidence of acute cholecystitis. Otherwise the liver, spleen, pancreas, and adrenal glands are unremarkable. Stable bilateral renal cysts, largest on the left measures 7 cm. No hydronephrosis or renal calculi. There are scattered atherosclerotic calcifications. No abdominal aortic aneurysm. Pelvis: Prostate is enlarged. Urinary bladder is nondistended. There is mild retained stool. No bowel inflammation or obstruction. Normal appendix. No free fluid, free air, or abscess. No enlarged adenopathy. Osseous structures: There is mild chronic appearing height loss at the L1 vertebral body. There are mild lumbar spine degenerative changes. IMPRESSION: No acute findings. ACT 112: Negative or not required by law. The above report was generated using voice recognition software. It may contain grammatical, syntax or spelling errors. Electronically signed by: Santiago Irby M.D. 04/15/2024 11:12 AM US gallbladder CLINICAL HISTORY: Right upper quadrant pain. COMPARISON STUDY: CT of the abdomen and pelvis performed earlier today and October 05, 2023. FINDINGS: Hepatic echogenicity is diffusely increased. There is no biliary ductal dilatation. Common bile duct measures 6 mm in caliber. The gallbladder is distended. There are stones and sludge within the gallbladder. There is no gallbladder wall thickening. No sonographic Sorto sign was elicited. The pancreas is obscured by overlying bowel gas. There is no right hydronephrosis. Exophytic 1.8 cm right upper pole renal cyst is present centrally noted. IMPRESSION: 1. Stones and sludge within the gallbladder. Distended gallbladder, similar to prior CT. No sonographic evidence for acute cholecystitis. 2. No biliary ductal dilatation. 3. Hepatic steatosis. ACT 112: Negative or not required by law. Electronically signed by: Anthony You M.D. 04/15/2024 12:08 PM PG Care Time/CCT Total # of Minutes Spent Total Time Spent with Patient: Total time spent is greater than 50% in coordination of care (as documented) at patient's floor/unit and/or counseling patient: Coding Level of Care Code 80944 OP VST NEW MOD 45 MIN Diagnoses Abdominal pain, acute, epigastric R10.13 Transaminitis R74.01 Total bilirubin, elevated R17
[2024-04-15 12:26] LABS: Appearance Urine Clear (Clear); Bilirubin Urine Negative (Negative); Blood Urine Negative (Negative); Color Urine Yellow; Glucose Urine UA Negative (Negative); Ketones Urine Negative (Negative); Leukocyte Esterase Urine Negative (Negative); Nitrite Urine Negative (Negative); Protein Urine Negative (Negative); Specific Gravity Urine > 1.045 (1.000-1.030); Urobilinogen Urine Positive (Negative); pH Urine 6.5 (4.5-7.5)
[2024-04-15 13:09] LABS: Troponin I High Sensitivity 5.6 pg/ml (0-20)
[2024-04-15] MEDS ORDERED: MoRPHine SULFATE 2 MG/ML CARP IV PRN (13:34)
[2024-04-15] MEDS ORDERED: ACETAMINOPHEN 1,000 MG/100 ML VIAL IV PRN (13:34)
[2024-04-15] MEDS ORDERED: ONDANSETRON INJ 2 MG/ML 2 ML VIAL IV PRN (13:34)
[2024-04-15 13:37] LABS: Bilirubin Direct 1.6 mg/dl (0-0.2)
[2024-04-15] MEDS: SODIUM CHLORIDE 0.9% 1,000 ML IV SCH (14:02)
--- NOTE | 2024-04-15 16:06 | Gastrointestinal Consultation ---
Date of Consultation April 15, 2024 Assessment & Plan (1) RUQ pain: (2) Transaminitis: (3) Total bilirubin, elevated: Plan - reviewed the US and CT imaging with radiology. no signs of any gallstones within in the CBD. At this time, do not suspect a stone, though may have passed one. - trend LFTs. - further recommendations to follow, see Dr. Cantu's append. Supervising Physician Co-Signing Physician Notes I saw and examined this patient with our nurse practitioner and agree with her assessment and plan. Possible that he does epigastric chest pain post biliary colic. However CT scan does not show any signs of acute cholecystitis. There is some calcified gallstones in the gallbladder but no thickening of the gallbladder wall or pericholecystic fluid. His his common bile duct is approximately 4 mm and not dilated. His liver enzyme elevations are nonspecific. They could be secondary to his underlying fatty liver. My suspicion for common duct stone is low. Due to the fact that he has calcified gallstones if there was (bile duct that should have been seen on CT scan. Recommend trending his liver enzymes over the weekend. Would reconsider further investigation of common bile duct stones if his liver enzymes trend the wrong way. History of Present Illness Reason for Consultation: epigastric pain Requesting Physician: Connie DOSHI Attending Physician: Meek Austin, PhD, DO History of Present Illness Patient is a 69 year old male with a past medical history of HTN, HLD, JAGDEEP, primary lateral sclerosis, who presented to the [facility] ED on 04/15/24 with complaints of chest pain, epigastric pain, and nausea. Patient states he woke up this morning at 6am with these symptoms. In addition to his chest pain/epigastric pain he felt sweaty and nauseated. He underwent a CT a/p showed stable small gallstone, stable gallbladder distention, without evidence of acute cholecystitis. Follow up with a RUQ US showed stones and sludge within a distended gallbladder No sonographic evidence for acute cholecystitis. No biliary ductal dilatation. Patient reports he has know about his gallstones over the last 6 months when he was imaged after falling and had a R sided rib fracture. He states he's had pain in his right side on and off since that fall last year. He denies any issues with pain related to food intake and has no worsening pain/symptoms with eating fatty/greasy/spicy meals. He tells me that since coming to the ED, he has felt better and does not have pain currently. He was found to have some elevation in LFTs and MRCP was recommended but patient could not tolerate MRIs. 04/15/24 t bili 2, d bili 1.6, ast 131. alt 115, alk 77. Allergies Allergy/AdvReac Type Severity Reaction Status Date / Time aspirin Allergy Intermediate Hives Verified 04/15/24 12:37 NSAIDS (Non-Steroidal Allergy Intermediate Hives Verified 04/15/24 12:37 Anti-Inflamma tizanidine AdvReac Unknown Unknown - Unverified 04/15/24 12:37 On file w/ [facility] Home Medications Medication Instructions Recorded Confirmed Type rosuvastatin 10 mg tablet 10 mg PO DAILY #90 tabs 07/30/23 04/15/24 Rx cholecalciferol (vitamin D3) 25 25 mcg PO DAILY 10/05/23 04/15/24 History mcg (1,000 unit) capsule lisinopril 10 mg tablet 10 mg PO QAM #90 tabs 10/05/23 04/15/24 Rx gabapentin 300 mg capsule 300 mg PO BID 04/04/24 04/15/24 History clotrimazole-betamethasone 1 0 applic topical DAILY PRN Rash 04/15/24 04/15/24 History %-0.05 % topical cream valacyclovir 500 mg tablet 0 mg PO TID PRN herpes simplex 04/15/24 04/15/24 History Patient History Medical History B12 deficiency Heavy alcohol use Prev drank 10-12 beers a day, Now 2-3 / day. Seizure had 1--one time d/t colonoscopy prep 5 yrs ago--no neurologist, no meds, pt stated it was due to dehydration Surgical History Hx of vasectomy History of tooth extraction History of colonoscopy Hyperplastic polyp x 2, Tubular Adenoma x 1. Family History Mother Lung cancer Father Cardiac disorder Unknown Myocardial infarction Other No family history of adverse response to anesthesia Denies family history of Ovarian cancer Prostate cancer Breast cancer Colorectal cancer Social History Smoking Status: Never smoker Tobacco Type: Smokeless Tobacco (Dip or Chew) Age Started Using Tobacco: 14; Age Quit Using Tobacco: 23; packs per day: 0.5; Second Hand Exposure: No; Do You Dip or Chew Tobacco: Yes; Tobacco Cessation Education Requested by Patient: No Hx Alcohol Use: Yes Alcohol type: beer Alcohol Intake Frequency Comment: 3-4 BEERS PER DAY Hx Substance Use: No Preferred Language: Algerian Communication Ability: Effective Visual Impairment: No Limitations Hearing Ability: Normal 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 Seatbelt Use: always Sunscreen Use: No Assistive Devices: Cane, CPAP and Glasses Assistive Devices Comment: Relates once in awhile use of cane Review of Systems Review of Systems: All systems reviewed & are unremarkable except as noted in HPI & below Physical Exam Constitutional: WD/WN, vitals as above Respiratory: normal respiratory effort, lungs clear to auscultation Cardiovascular: Rate/Rhythm: regular rate and regular rhythm Gastrointestinal (Abdomen): RUQ tenderness to palpation, no guarding, soft, normal bowel sounds. Psychiatric: Orientation: alert and oriented x 3 Affect: euthymic affect Results & Data Vital Signs (Past 12 Hours) Vital Signs Temp Pulse Pulse Resp BP BP Pulse Ox 04/15/24 13:34 65 16 140/53 L 97 04/15/24 13:26 64 04/15/24 13:09 72 24 140/53 L 96 04/15/24 11:28 68 20 130/61 97 04/15/24 10:15 72 20 116/66 96 04/15/24 10:03 72 20 190/78 H 97 04/15/24 09:32 96 04/15/24 09:19 77 04/15/24 09:01 97.7 F 80 18 168/87 H 96 O2 Del Method 04/15/24 13:34 Room Air 04/15/24 13:26 04/15/24 13:09 Room Air 04/15/24 11:28 Room Air 04/15/24 10:15 Room Air 04/15/24 10:03 Room Air 04/15/24 09:32 Room Air 04/15/24 09:19 04/15/24 09:01 Room Air Laboratory Results Laboratory Results - last 48 hr 04/15/24 04/15/24 04/15/24 09:20 09:22 11:59 WBC 6.34 RBC 4.90 Hgb 14.3 Hct 42.8 MCV 87.3 MCH 29.2 MCHC 33.4 RDW Std Deviation 45.1 RDW Coeff of Roseann 14.0 Plt Count 207 MPV 9.7 Immature Gran % (Auto) 0.3 Neut % (Auto) 73.8 Lymph % (Auto) 13.6 [place] % (Auto) 10.1 Eos % (Auto) 1.6 Baso % (Auto) 0.6 Neut # (Auto) 4.68 Lymph # (Auto) 0.86 L [place] # (Auto) 0.64 H Eos # (Auto) 0.10 Baso # (Auto) 0.04 Immature Gran # (Auto) 0.02 PT 10.7 INR 1.0 VBG pH 7.34 L VBG pCO2 52 H VBG pO2 28 VBG HCO3 28 VBG O2 Saturation < 60.0 VBG Base Excess 1.4 Sodium 133 L Potassium 4.4 Chloride 99 Carbon Dioxide 27 Anion Gap 7 BUN 20 Creatinine 1.06 Est Cr Clr Drug Dosing 94.4 eGFR 75.03 BUN/Creatinine Ratio 18.9 Glucose 167 H Calcium 9.1 Magnesium 2.1 Total Bilirubin 2.0 H Direct Bilirubin AST 131 H ALT 115 H Alkaline Phosphatase 77 Troponin I High Sens 5.6 B-Natriuretic Peptide 30 Total Protein 7.2 Albumin 4.2 Globulin 3.0 Albumin/Globulin Ratio 1.4 Lipase 31 Urine Color Yellow Urine Appearance Clear Urine pH 6.5 Ur Specific [place] > 1.045 H Urine Protein Negative Urine Glucose (UA) Negative Urine Ketones Negative Urine Blood Negative Urine Nitrite Negative Urine Bilirubin Negative Urine Urobilinogen Positive H Ur Leukocyte Esterase Negative Adenovirus (PCR) Not Detected B. pertussis DNA (PCR) Not Detected B.parapertussis DNA PCR Not Detected C. pneumoniae DNA (PCR) Not Detected Coronavirus OC43 (PCR) Not Detected Coronavirus HKU1 (PCR) Not Detected Coronavirus 229E (PCR) Not Detected SARS-CoV-2 (PCR) Not Detected Coronavirus NL63 (PCR) Not Detected Monoscreen Negative Human Metapneumovir PCR Not Detected Influenza Type A (PCR) Not Detected Influenza Type B (PCR) Not Detected M. pneumoniae (PCR) Not Detected Parainfluenza 1 (PCR) Not Detected Parainfluenza 2 (PCR) Not Detected Parainfluenza 3 (PCR) Not Detected Parainfluenza 4 (PCR) Not Detected RSV (PCR) Not Detected Entero/Rhino (PCR) Not Detected 04/15/24 12:27 WBC RBC Hgb Hct MCV MCH MCHC RDW Std Deviation RDW Coeff of Roseann Plt Count MPV Immature Gran % (Auto) Neut % (Auto) Lymph % (Auto) [place] % (Auto) Eos % (Auto) Baso % (Auto) Neut # (Auto) Lymph # (Auto) [place] # (Auto) Eos # (Auto) Baso # (Auto) Immature Gran # (Auto) PT INR VBG pH VBG pCO2 VBG pO2 VBG HCO3 VBG O2 Saturation VBG Base Excess Sodium Potassium Chloride Carbon Dioxide Anion Gap BUN Creatinine Est Cr Clr Drug Dosing eGFR BUN/Creatinine Ratio Glucose Calcium Magnesium Total Bilirubin Direct Bilirubin 1.6 H AST ALT Alkaline Phosphatase Troponin I High Sens 5.6 B-Natriuretic Peptide Total Protein Albumin Globulin Albumin/Globulin Ratio Lipase Urine Color Urine Appearance Urine pH Ur Specific [place] Urine Protein Urine Glucose (UA) Urine Ketones Urine Blood Urine Nitrite Urine Bilirubin Urine Urobilinogen Ur Leukocyte Esterase Adenovirus (PCR) B. pertussis DNA (PCR) B.parapertussis DNA PCR C. pneumoniae DNA (PCR) Coronavirus OC43 (PCR) Coronavirus HKU1 (PCR) Coronavirus 229E (PCR) SARS-CoV-2 (PCR) Coronavirus NL63 (PCR) Monoscreen Human Metapneumovir PCR Influenza Type A (PCR) Influenza Type B (PCR) M. pneumoniae (PCR) Parainfluenza 1 (PCR) Parainfluenza 2 (PCR) Parainfluenza 3 (PCR) Parainfluenza 4 (PCR) RSV (PCR) Entero/Rhino (PCR) Coding Level of Care Code 90901 INT INP/OBS CARE 255MIN Diagnoses RUQ pain R10.11 Transaminitis R74.01 Total bilirubin, elevated R17
--- NOTE | 2024-04-15 17:45 | Electrocardiogram Report ---
Test Reason : Blood Pressure : */* mmHG Vent. Rate : 75 BPM Atrial Rate : 75 BPM P-R Int : 164 ms QRS Dur : 74 ms QT Int : 380 ms P-R-T Axes : 36 14 49 degrees QTcB Int : 424 ms Normal sinus rhythm Possible Anterior infarct , age undetermined Abnormal ECG No previous ECGs available Confirmed by Eren Hernandez ([id number]) on 04/15/2024 5:44:52 PM Referred By: REFERRED SELF Confirmed By: Eren Hernandez
[2024-04-15] MEDS: PIPERACILLIN/TAZOBACTAM 4.5 GM/100 ML BAG IV SCH (18:36)
[2024-04-15] MEDS: GABAPENTIN 300 MG CAP PO SCH (20:19)
--- NOTE | 2024-04-16 06:03 | Surgery Progress Note ---
Date of Service April 16, 2024 Assessment & Plan (1) Abdominal pain, acute, epigastric: Plan: Given patient's elevated LFTs recommended he undergo MRCP, however given his past experience with having a panic attack in MRI he refused MRCP imaging to evaluate for possible choledocholithiasis. Currently AM labs are pending - if LFTs continue to be elevated patient will likely need ERCP by GI. If LFTs are improving will consider cholecystectomy over the next few days. For now keep patient NPO Continue medical management per primary team, surgery will continue to follow Admission and Anticipated Discharge Date Admission Date: April 15, 2024 Supervising Physician Co-Signing Physician Notes Patient seen examined, labs reviewed, agree with above. Admitted with epigastric pain and transaminitis. Imaging showed cholelithiasis with no evidence of cholecystitis. No choledocholithiasis on ultrasound or dilation of the common bile duct. Unable to tolerate MRCP due to anxiety and panic attack that occurred and an MRI a few years ago. Today's feeling better, no epigastric or right upper quadrant pain. He still describes his right flank pain which is been present since a rib fracture several months ago. His abdomen is soft, nontender. His WBC is normal, bilirubin 1.5, direct bilirubin 0.6, AST and ALT stable. GI was consulted and at this point they are not convinced this is related to cholelithiasis or cholecystitis. We did recommend possible MRCP if labs worsen that may need to be done with sedation with anesthesia assistance. Also recommended considering a HIDA scan, unfortunately these are unable to be done over the weekend. At this point the patient symptoms have resolved. I think it is safe to advance his diet as tolerated. We will repeat his LFTs in the morning. If they are continuing to downtrend and he is asymptomatic, he can be discharged home tomorrow and follow-up with me as an outpatient. He would also likely need GI follow-up at some point. If his LFTs worsen he may need ERCP, therefore we would recommend making n.p.o. at midnight. Once his labs come back back he could be could be advanced. Subjective Patient doing well this morning, states overnight he did have some intermittent pain/cramping at times in his upper epigastric and RUQ. Was able to tolerate clear liquids yesterday up until midnight without any issues of N/V Pending AM LFTs to further evaluate if patient would potentially need ERCP VSS, afebrile, denies any fevers or chills Physical Exam Constitutional: WD/WN, vitals as above Respiratory: normal respiratory effort, lungs clear to auscultation Gastrointestinal (Abdomen): Abdomen obese, soft, and nondistended. Mild TTP in the epigastric/RUQ region otherwise no rebound or guarding Skin: no rashes, warm and dry Results & Data Vital Signs (Past 12 Hours) Vital Signs Temp Pulse Pulse Resp BP BP Pulse Ox 04/16/24 03:53 36.4 C L 66 18 156/77 H 96 04/15/24 22:20 36.6 C 70 18 123/71 96 04/15/24 21:42 65 04/15/24 19:30 04/15/24 18:35 36.6 C 71 16 131/75 96 04/15/24 18:19 88 18 166/77 H 97 O2 Del Method 04/16/24 03:53 Room Air 04/15/24 22:20 Room Air 04/15/24 21:42 04/15/24 19:30 Room Air 04/15/24 18:35 Room Air 04/15/24 18:19 Room Air PG Care Time/CCT Total # of Minutes Spent Total Time Spent with Patient: Total time spent is greater than 50% in coordination of care (as documented) at patient's floor/unit and/or counseling patient: Coding Level of Care Code 25981 SUB INP/OBS CARE 04/30MIN Medical Decision Making Straight Forward Diagnoses Abdominal pain, acute, epigastric R10.13
[2024-04-16 07:15] LABS: Basophils # (auto) 0.04 K/uL (0.00-0.20); Basophils % (auto) 0.7 %; Eosinophils # (auto) 0.21 K/uL (0.00-0.50); Eosinophils % (auto) 3.8 %; Hematocrit (blood only) 41.6 % (42.0-52.0); Hemoglobin 13.6 g/dl (14.0-18.0); Immature Granulocytes # (auto) 0.01 K/uL (0.01-0.20); Immature Granulocytes % (auto) 0.2 %; Lymphocytes # (auto) 1.15 K/uL (1.20-3.40); Lymphocytes % (auto) 20.5 %; Mean Corpuscular Hemoglobin 29.1 pg (25.0-34.0); Mean Corpuscular Hgb Conc 32.7 g/dL (32.0-36.0); Mean Corpuscular Volume 89.1 fL (80.0-100.0); Mean Platelet Volume 9.5 fL (9.4-12.4); Monocytes # (auto) 0.57 K/uL (0.11-0.59); Monocytes % (auto) 10.2 %; Neutrophils # (auto) 3.62 K/uL (1.40-6.50); Neutrophils % (auto) 64.6 %; Platelet Count 187 K/uL (130-400); RDW Coefficient of Variation 14.3 % (11.5-14.5); Red Blood Count 4.67 M/uL (4.70-6.10)
[2024-04-16 07:40] LABS: Albumin Globulin Ratio 1.4 (0.9-2); Albumin Level 3.8 gm/dl (3.4-5.0); BUN Creatinine Ratio 11.5 (10-20); Bilirubin Direct 0.6 mg/dl (0-0.2); Bilirubin,Total 1.5 mg/dl (0.2-1.0); Calcium 8.5 mg/dl (8.6-10.3); Creatinine Clr Calc Pharmacy 88.6 ml/min; Globulin 2.8 gm/dl (2.5-4.0); Potassium 4.5 mmol/L (3.5-5.1); Total Protein 6.6 gm/dl (6.0-8.3)
[2024-04-16] MEDS: lisinopril 10 MG TAB PO SCH (08:58)
--- NOTE | 2024-04-16 08:58 | Gastroenterology Progress Note ---
Date of Service April 16, 2024 Assessment & Plan (1) Chest pain: Plan: Symptoms resolved. Not convinced that his episode of chest pain is definitely related to gallstone disease. Other possibilities include esophageal spasm as well as musculoskeletal pain. Imaging does not support acute cholecystitis or choledocholithiasis. (2) Transaminitis: Plan: Repeat liver enzymes today show a 1.5 which is starting to normalize and a normal alkaline phosphatase. His transaminases are elevated which continue to be nonspecific. This could be a pattern consistent with steatohepatitis. Does have a significantly fatty liver on CT scan. Would repeat LFTs in a.m. (3) Abdominal pain, acute, epigastric: (4) Total bilirubin, elevated: (5) Cholelithiasis: Plan: CT scan showed calcified gallstones in the gallbladder. However there was no thickening of the gallbladder wall or pericholecystic fluid not supporting acute cholecystitis. His common bile duct is well-visualized and is about 3 to 4 mm in diameter without any calcifications any which does not suggest choledocholithiasis. To further evaluate gallbladder disease options include obtaining a HIDA scan and possibly convincing him to undergo just an MRCP which is a much shorter study than an MRI MRCP. He is reluctant to do that because of anxiety however possibly a small dose of Ativan could help. Plan Repeat liver enzymes in a.m. Consider HIDA scan and possible MRCP with Ativan Admission and Anticipated Discharge Date Admission Date: April 15, 2024 Subjective Continues to feel well resolved epigastric and substernal chest pain. Still with right sided flank pain which has been present prior to this hospitalization. Denies shortness of breath. Review of Systems Review of Systems: No shortness of breath no chest pain no acute distress Physical Exam Physical Exam: Eyes; anicteric Chest clear to A Cor S1, S2 physiologic Abd: softer nontender no masses Ext no edema Results & Data Results & Data Vital Signs (Past 12 Hours) Vital Signs Temp Pulse Pulse Resp BP Pulse Ox O2 Del Method 04/16/24 07:50 64 04/16/24 07:21 36.5 C 72 16 140/82 97 Room Air 04/16/24 03:53 36.4 C L 66 18 156/77 H 96 Room Air 04/15/24 22:20 36.6 C 70 18 123/71 96 Room Air 01/10/25 21:42 65 PG Care Time/CCT Total # of Minutes Spent Total Time Spent with Patient: Total time spent is greater than 50% in coordination of care (as documented) at patient's floor/unit and/or counseling patient: Coding Level of Care Code 77981 SUB INP/OBS CARE 3/50MIN Diagnoses Chest pain R07.9 Transaminitis R74.01 Abdominal pain, acute, epigastric R10.13 Total bilirubin, elevated R17 Cholelithiasis K80.20
--- NOTE | 2024-04-16 13:23 | Hospitalist Progress Note ---
Date of Service April 16, 2024 Assessment & Plan (1) RUQ pain: Plan: Suspect he may have passed a gallstone. He has known cholelithiasis. He refuses MRCP. He is relatively asymptomatic today. Appreciate gastroenterology consultation and recommendations. HIDA scan can be pursued as an outpatient with eventual laparoscopic cholecystectomy. Unlikely that any testing can be completed here on the weekend. (2) Transaminitis: Plan: Mildly elevated. Probably chronic from hepatic steatosis related to obesity (3) Chest pain: Plan: Resolved. No evidence of acute coronary syndrome (4) Hyponatremia: Plan: Mild on admission and inconsequential. No intervention necessary at this time Plan Hopeful discharge to home tomorrow, April 17 Admission and Anticipated Discharge Date Admission Date: April 15, 2024 Subjective Alert and oriented. Appreciate gastroenterology recommendations. However, the patient refuses MRI scanning and getting a HIDA scan done on the weekend is probably not going to happen. He is relatively asymptomatic and he may have passed a gallstone causing his current symptoms. This can be pursued further as an outpatient and the patient is aware. Total bilirubin is now trending down. Liver enzymes are likely to remain mildly elevated due to hepatic steatosis. He is now on clear liquids and IV fluids have been tapered down. No indication for intravenous antibiotics. Hopefully he can go home tomorrow, April 17, and pursue outpatient evaluation and eventual cholecystectomy at a later date. Review of Systems 2 Review of Systems: Constitutionalno fever or chills. Obese ENTno blurred vision, no double vision, no epistaxis, no sore throat Respiratoryno cough, no wheezing, no shortness of breath Cardiacno palpitations, no chest pain, no syncope Rahul nausea, vomiting, diarrhea, melena, hematochezia GUno urinary retention, no urinary incontinence, no dysuria, no hematuria Musculoskeletalno joint pain, no muscle tenderness Skinno bruising, no rashes, no pruritus Neurono isolated weakness, no paresthesia, no weakness Psychno depression, no anxiety Physical Exam 2 Physical Exam: General-alert and oriented x3, no fever, no chills. Obese HEENT-head atraumatic and normocephalic, pupils equal and reactive to light, extraocular muscles intact Neck-no lymphadenopathy or thyromegaly, trachea midline Chest-clear to auscultation. No rales, wheezing or rhonchi Cardiac-regular rate and rhythm, normal S1 and S2 Abdomen-normal bowel sounds, no hepatosplenomegaly. No tenderness Extremities-no cyanosis, clubbing, or edema Neuro-cranial nerves II through XII intact, motor and sensory function within normal limits, strength symmetrical, no focal deficits Psych-normal affect, normal mood Results & Data Results & Data Vital Signs (Past 12 Hours) Vital Signs Temp Pulse Pulse Resp BP Pulse Ox O2 Del Method 04/16/24 11:52 36.5 C 62 16 122/75 96 Room Air 04/16/24 09:15 Room Air 04/16/24 07:50 64 04/16/24 07:21 36.5 C 72 16 140/82 97 Room Air 04/16/24 03:53 36.4 C L 66 18 156/77 H 96 Room Air Laboratory Results 04/16/24 06:30 04/16/24 06:30 PG Care Time/CCT Total # of Minutes Spent Total Time Spent with Patient: Total time spent is greater than 50% in coordination of care (as documented) at patient's floor/unit and/or counseling patient: Coding Level of Care Code 24841 SUB INP/OBS CARE 3/50MIN Diagnoses RUQ pain R10.11 Transaminitis R74.01 Chest pain R07.9 Hyponatremia E87.1
--- NOTE | 2024-04-17 06:00 | Surgery Progress Note ---
Date of Service April 17, 2024 Assessment & Plan (1) Abdominal pain, acute, epigastric: Plan: Given patient was unable to undergo MRCP , we have been trending his LFTs over the weekend. T bili did improve yesterday from 2 to 1.5. He was given a diet yesterday and he was able to tolerate without any issues of worsening abdominal pain, nausea or vomiting. He does continue to complain about right-sided flank pain with deep breathing and pain with certain movements however this could be secondary to previous rib fracture. Currently the patient's AM LFTs are pending, if they continue to improve patient may resume a diet again this morning and it was discussed with the patient about possible discharge and following up with Dr. Alston for elective cholecystectomy. In the event his LFTs are elevated he may need ERCP. Admission and Anticipated Discharge Date Admission Date: April 15, 2024 Supervising Physician Co-Signing Physician Notes Patient seen examined, labs reviewed, agree with above. Admitted with substernal chest pain and epigastric abdominal pain with elevated LFTs. MRCP negative, these downtrended and are now normalizing. The pain brought him in his past. He has had persistent intermittent right flank pain over the past several months since breaking a rib. He also has a distended gallbladder and cholelithiasis. Tolerated regular diet yesterday. Feels much better than arrival. On exam he is afebrile stable vitals, his abdomen is soft, nontender, nondistended. Bilirubin normal, AST and ALT downtrending, WBC normal. Whether his symptoms over the past several months or the brought upon his admission are in any way related to his gallbladder is difficult to ascertain. He does have a distended gallbladder along with some gallstones. At this point we could discharge him to home if he is feeling okay today and he can follow-up with me as an outpatient to discuss possible elective cholecystectomy. If his symptoms worsen or persist, then would recommend HIDA scan tomorrow. Subjective Patient seen and examined early this morning, overall states he feels well but continues with right flank pain at times with deep breaths and movement. Pending AM LFTS, however yesterday Tbili did improve from 2 to 1.5. Patient was given a diet yesterday throughout the day, he states he was able to tolerate without any issues of epigastric/RUQ pain, nausea or vomiting. VSS, afebrile, denies CP or SOB Physical Exam Constitutional: WD/WN, vitals as above Respiratory: normal respiratory effort, lungs clear to auscultation Gastrointestinal (Abdomen): Abdomen obese, soft, and nondistended. Mild TTP in the right mid flank region but otherwise nontender in the RUQ. Results & Data Vital Signs (Past 12 Hours) Vital Signs Temp Pulse Pulse Resp BP Pulse Ox O2 Del Method 04/17/24 04:00 36.8 C 62 18 115/77 95 Room Air 04/17/24 00:00 36.8 C 71 18 141/71 H 96 Room Air 04/16/24 21:36 65 04/16/24 19:20 Room Air 04/16/24 19:00 36.8 C 69 18 157/84 H 98 Room Air PG Care Time/CCT Total # of Minutes Spent Total Time Spent with Patient: Total time spent is greater than 50% in coordination of care (as documented) at patient's floor/unit and/or counseling patient: Coding Level of Care Code 63680 SUB INP/OBS CARE 04/30MIN Diagnoses Abdominal pain, acute, epigastric R10.13
[2024-04-17 06:11] LABS: Basophils # (auto) 0.06 K/uL (0.00-0.20); Basophils % (auto) 0.9 %; Eosinophils # (auto) 0.24 K/uL (0.00-0.50); Eosinophils % (auto) 3.7 %; Hematocrit (blood only) 42.2 % (42.0-52.0); Hemoglobin 13.6 g/dl (14.0-18.0); Immature Granulocytes # (auto) 0.03 K/uL (0.01-0.20); Immature Granulocytes % (auto) 0.5 %; Lymphocytes # (auto) 1.44 K/uL (1.20-3.40); Lymphocytes % (auto) 22.4 %; Mean Corpuscular Hemoglobin 28.8 pg (25.0-34.0); Mean Corpuscular Hgb Conc 32.2 g/dL (32.0-36.0); Mean Corpuscular Volume 89.2 fL (80.0-100.0); Mean Platelet Volume 9.6 fL (9.4-12.4); Monocytes # (auto) 0.68 K/uL (0.11-0.59); Monocytes % (auto) 10.6 %; Neutrophils # (auto) 3.99 K/uL (1.40-6.50); Neutrophils % (auto) 61.9 %; Platelet Count 196 K/uL (130-400); RDW Standard Deviation 45.5 fL (36.4-46.3); Red Blood Count 4.73 M/uL (4.70-6.10); White Blood Count 6.44 K/ul (4.8-10.8)
[2024-04-17 06:44] LABS: Albumin Globulin Ratio 1.3 (0.9-2); Albumin Level 3.9 gm/dl (3.4-5.0); BUN Creatinine Ratio 12.6 (10-20); Bilirubin,Total 0.9 mg/dl (0.2-1.0); Calcium 8.8 mg/dl (8.6-10.3); Creatinine Clr Calc Pharmacy 97.3 ml/min; Globulin 2.9 gm/dl (2.5-4.0); Potassium 4.3 mmol/L (3.5-5.1); Total Protein 6.8 gm/dl (6.0-8.3)
[2024-04-17 07:16] VITALS: TEMP 98.4
--- NOTE | 2024-04-17 08:27 | Gastroenterology Progress Note ---
Date of Service April 17, 2024 Assessment & Plan (1) Cholelithiasis: Plan: Resolved abdominal pain possibly biliary colic. No need for emergent intervention at this time. Await surgical input regarding follow-up. (2) Transaminitis: Plan: Liver enzymes are normalizing. Bilirubin and alkaline phosphatase normal transaminases lower. Doubt choledocholithiasis. He can follow-up with us as an outpatient to monitor his liver enzymes and evaluate his fatty liver. (3) Abdominal pain, acute, epigastric: Plan: Resolved Admission and Anticipated Discharge Date Admission Date: April 15, 2024 Subjective No shortness of breath no chest pain no abdominal pain. Physical Exam Physical Exam: No acute distress Respiratory rate regular Cardiac rhythm regular Abdomen soft nontender Results & Data Results & Data Vital Signs (Past 12 Hours) Vital Signs Temp Pulse Pulse Resp BP BP Pulse Ox 04/17/24 07:16 36.9 C 61 18 154/82 H 96 04/17/24 07:07 71 04/17/24 04:00 36.8 C 62 18 115/77 95 04/17/24 00:00 36.8 C 71 18 141/71 H 96 04/16/24 21:36 65 O2 Del Method 04/17/24 07:16 Room Air 04/17/24 07:07 04/17/24 04:00 Room Air 04/17/24 00:00 Room Air 04/16/24 21:36 PG Care Time/CCT Total # of Minutes Spent Total Time Spent with Patient: Total time spent is greater than 50% in coordination of care (as documented) at patient's floor/unit and/or counseling patient: Coding Level of Care Code 53378 SUB INP/OBS CARE 2/35MIN Diagnoses Cholelithiasis K80.20 Transaminitis R74.01 Abdominal pain, acute, epigastric R10.13
[2024-04-17 10:45] VITALS: PULSE 66; RESP 16; O2SAT 95
--- NOTE | 2024-04-17 11:18 | Discharge Summary ---
Discharge Summary Date of Service April 17, 2024 Principal Dx & Hospital Course #1 = Principal Diagnosis (1) RUQ pain: Suspect he may have passed a gallstone. He has known cholelithiasis. He refuses MRCP. He remains asymptomatic. Appreciate gastroenterology consultation and recommendations. HIDA scan can be pursued as an outpatient with eventual laparoscopic cholecystectomy. (2) Transaminitis: Mildly elevated. Probably chronic from hepatic steatosis related to obesity (3) Chest pain: Resolved. No evidence of acute coronary syndrome (4) Hyponatremia: Mild on admission and inconsequential. No intervention necessary at this time Plan Home today, April 17. Hold statin. Follow-up with PCP as soon as possible for scheduling of elective cholecystectomy Admission HPI Per Admitting Provider Santiago is a 69M with a PMHx Obesity, BPH, prediabetes (diet controlled), progressive lateral sclerosis, hypertension, hyperlipidemia, EtOH use and JAGDEEP - presents with chest/epigastric pain that awoke him from sleep around 6am. States he woke up with severe chest pain and difficulty breathing, that improved on his way to the ER. Also has nausea that has resolved with Zofran. No chest pain or shortness of breath reported during my interview, he is on room air. Does report he still has some residual right sided pain from fall resulting in rib fractures, but usually not this signficant. States that he had pork and potatoes last night for dinner. No history of gallstone problems. He did not eat this morning but he did take his morning lisinopril. He desires to be full code ED course: Zofran 4 mg IV x 1 Morphine 4 mg IV x 1 Zosyn x 1 Discharge Exam General-alert and oriented x3, no fever, no chills. Obese HEENT-head atraumatic and normocephalic, pupils equal and reactive to light, extraocular muscles intact Neck-no lymphadenopathy or thyromegaly, trachea midline Chest-clear to auscultation. No rales, wheezing or rhonchi Cardiac-regular rate and rhythm, normal S1 and S2 Abdomen-normal bowel sounds, no hepatosplenomegaly. No tenderness Extremities-no cyanosis, clubbing, or edema Neuro-cranial nerves II through XII intact, motor and sensory function within normal limits, strength symmetrical, no focal deficits Psych-normal affect, normal mood Discharge Plan Discharge Items Patient Disposition: Home - Self-Care Reason For Visit: ELEVATED LFTs, RUQ PAIN Discharge Diagnosis: Suspected transient biliary colic, known cholelithiasis with suspected episode of choledocholithiasis, chest pain without acute coronary syndrome, elevated liver function tests Activity: Resume your previous activity Non-emergency contact: Primary Care Provider Call non-emergency contact if: your symptoms worsen Follow-up/Referrals: Brando Mueller CRNP [Primary Care Provider] - Diet: Regular and Low Fat Addtl Attending Provider Instructions: Hold rosuvastatin. See primary care provider as soon as possible. Elective gallbladder removal is to be considered. Pending Studies at Discharge: No Stand-Alone Forms: [employer], Smoking Cessation Medications and DC Order Prescriptions: Continued cholecalciferol (vitamin D3) 25 mcg (1,000 unit) capsule 25 mcg PO DAILY Rx Instructions: Unable to verify OTC meds at this date/time. lisinopril 10 mg tablet 10 mg PO QAM Qty: 90 3RF Rx Instructions: TAKE 1 TABLET EVERY DAY gabapentin 300 mg capsule 300 mg PO BID valacyclovir 500 mg tablet 0 mg PO TID PRN (Reason: herpes simplex) Rx Instructions: Unable to verify with pharmacy/patient at this date/time. Original Directions: 500mg by mouth TID as needed clotrimazole-betamethasone 1-0.05 % cream 0 applic TOP DAILY PRN (Reason: Rash) Rx Instructions: Unable to verify with pharmacy/patient at this date/time. Original Directions: 1 slade topically daily as needed Discontinued rosuvastatin 10 mg tablet 10 mg PO DAILY Qty: 90 3RF Discharge Orders: Discharge Order (Routine); Ordered 04/17/24 Ordered By: Shaji Garcia Admission Data Admit Date/Time: 04/15/24 12:41 Attending Provider: Shaji Garcia Admit Provider: Meek Austin Primary Care Provider: Brando Mueller Other Providers: Santiago Alston; Meek Austin; Danny Cantu I Hospital Stay Data Consultations 04/15/24 11:34 Consult General Surgery Routine 04/15/24 12:00 ED Decision to Admit Stat 04/15/24 14:56 Consult Gastroenterology Routine Diagnostic Imagining Performed 04/15/24 10:06 CT Abd and Pelvis [CT abd pelvis IV con only] Stat 04/15/24 10:45 US gallbladder Stat Pending Results Patient Have Any Pending Studies at Discharge: No Discharge Instructions Given to Patient (Per Discharging Provider) Hold rosuvastatin. See primary care provider as soon as possible. Elective gallbladder removal is to be considered. Total Time Total Time Spent Total Time Spent (In Minutes): 45 minutes Coding Level of Care Code 46796 INP/OBS DISCH >30 MIN Diagnoses RUQ pain R10.11 Transaminitis R74.01 Chest pain R07.9 Hyponatremia E87.1
[2024-04-17 11:25] VITALS: BP 115/77
[2024-04-18 14:37] LABS: EBV Nuclear Ag Antibody >600.00 U/mL; EBV Virus Capsid Ag IgG Ab >750.00 U/mL; Epstein Barr Virus Early Ag Ab <9.00 U/mL
== END 2024-04-17 13:31 | disposition home or self-care (01) | DRG 445 ==
LOC: ED 08:48 → SUATTDRO 12:41 → EDINP 12:41 → 2N 13:34

== ENCOUNTER 2025-02-18 22:28 | Observation (INO) ==
--- NOTE | 2025-02-18 22:38 | Emergency Department Note ---
Impression & Plan Back pain ADMIT ED Provider Note HPI: History obtained from patient. 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 Patient states this pain began several hours prior to arrival when he twisted his back getting out of a car. Patient states the pain is fairly severe with certain movements. On arrival here to the ED the patient is otherwise alert, he has baseline motor function in his bilateral lower extremities, he otherwise appears to be in no acute distress. ROS: - Per HPI Differential Diagnosis: Degenerative changes of the lumbar spine with neuroforaminal stenosis/sciatica, herniated lumbar disc, compression fracture, cauda equina syndrome, muscle strain, amongst other potential pathologies. *Outpatient medications and allergy history reviewed. PE: General: Alert, morbidly obese HEENT: Normocephalic, trachea midline Eyes: Extraocular eye movement is intact, no scleral erythema Pulmonary: Clear to auscultation bilaterally, no wheezing Cardio: Regular rate and rhythm GI: Abdomen is soft to palpation : No suprapubic tenderness MSK: No evidence of trauma or malformation of the extremities, no edema, diminished strength with dorsiflexion and plantarflexion of the right lower extremity at baseline, 5 out of 5 strength noted in the left lower extremity with dorsiflexion and plantarflexion Skin: No evidence of rash Neuro: Alert, no focal deficits Psychiatric: Cooperative INDEPENDENT INTERPRETATIONS: 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 Lab work shows a leukocytosis of 15.47, hemoglobin is normal, platelet count is normal, CMP does not show any evidence of any critical findings. CT imaging of the lumbar spine was obtained that shows an age-indeterminate endplate compression deformity at L1, I did review the patient's MRI of the lumbar spine that was obtained over the summer at [facility], this showed chronic compression fracture at L2 and varying degrees of bilateral neuroforaminal stenosis most severe at L5-S1 on the left side that does correlate with the patient's pain. Patient states he never followed up following his MRI and did not schedule an appointment with his PCP. On my reassessment following IV pain medicine, patient states his pain is mildly improved but he states he does not feel that he can walk and does not feel comfortable going home. I did therefore consult [facility] hospitalist service for admission. I do suspect that this is acute on chronic pain related to neuroforaminal stenosis and likely his chronic L2 compression fracture. He does not have any red flag findings for cauda equina syndrome on my exam. His pain is only several hours old in regards to this acute episode and seem to relate to an acute issue when he was twisting his back getting out of a car. Patient and his significant other at the bedside were in agreement for admission. Patient was placed for admission in stable condition. Consultations: [facility] hospitalist service, Dr. Knox Disposition discussion with: Patient and at the bedside Diagnosis: 1. Left lower back pain, acute on chronic 2. Ambulatory dysfunction, acute Disposition: Admission Ash Mcnally DO Emergency Medicine Past Med/Surg History Problem List (Updated 02/19/25 @ 00:22 by Ash Mcnally DO) Back pain (Acute) Diabetes mellitus Frequent PVCs Ventricular bigeminy S/P laparoscopic cholecystectomy Cholelithiasis Hyponatremia RUQ pain Total bilirubin, elevated (Acute) Transaminitis (Acute) Abdominal pain, acute, epigastric (Acute) B12 deficiency BPH NOS w ur obs/LUTS Degeneration of meniscus of left knee Left knee DJD Rosacea Multiple polyps of sigmoid colon Reactive depression (situational) (Acute) Primary lateral scleroses (Acute) Followed by [facility] Neurology - Right leg weakness, spasticity and pain. NSAID sensitivity (Acute) Moderate obstructive sleep apnea (Acute) Impaired fasting glucose (Acute) Hypertension (Acute) Hyperlipidemia (Acute) BMI 45.0-49.9, adult (Acute) Medical History History of seizure Bradycardia Prediabetes BMI 45.0-49.9, adult Transaminitis Rosacea Osteoarthritis Hypertension Hyperlipidemia Primary lateral sclerosis Chest pain Cholelithiasis BPH loc w urin obs/LUTS Sleep apnea Chronic fatigue syndrome Aspirin allergy Heavy alcohol use Surgical History Hx laparoscopic cholecystectomy (08/31/24) Hx of vasectomy History of tooth extraction History of colonoscopy Family History Mother Lung cancer Father Cardiac disorder Unknown Myocardial infarction Other No family history of adverse response to anesthesia Denies family history of Ovarian cancer Prostate cancer Breast cancer Colorectal cancer Social History Smoking Status: Never smoker Tobacco Type: Smokeless Tobacco (Dip or Chew) Age Started Using Tobacco: 14; Age Quit Using Tobacco: 23; packs per day: 0.5; Cigarettes Per Day: 1/2 can per day; Second Hand Exposure: No; Do You Dip or Chew Tobacco: Yes (advised npo); Hx Alcohol Use: Yes Alcohol type: beer Alcohol Intake Frequency Comment: 3-4 BEERS PER DAY Hx Substance Use: No Preferred Language: Croatian Communication Ability: Effective Visual Impairment: No Limitations Hearing Ability: Normal Hospital Insurance Clerk Required: No Beliefs That Will Affect Care: None marital status: Current Living Situation: Spouse current occupational status: retired and disabled Feels Safe at Home: Yes Childhood Exposure to Second-Hand Smoke: No Diet: other Diet Comment: low fat diet caffeine: Yes during the past year weight has: increased > 10 lbs Dental Care, Regularly: Yes Physical Activity Frequency: Other Physical Activity Frequency Comment: LIMITED BY PHYSICAL CONDITION - DISABLED. Seatbelt Use: always Sunscreen Use: No Assistive Devices: Cane, CPAP and Glasses Allergies Allergies Allergy/AdvReac Type Severity Reaction Status Date / Time aspirin Allergy Intermediate Hives Verified 02/18/25 23:14 NSAIDS (Non-Steroidal Allergy Intermediate Hives Verified 02/18/25 23:14 Anti-Inflamma tizanidine AdvReac Intermediate "made me Verified 02/18/25 23:14 feel goofy and funny" Home Meds Home Medications Medication Instructions Recorded Confirmed cholecalciferol (vitamin D3) 25 50 mcg PO DAILY 10/05/23 02/18/25 mcg (1,000 unit) capsule gabapentin 300 mg capsule 300 mg PO HS 04/18/24 02/18/25 cyanocobalamin (vitamin B-12) 1,000 mcg PO DAILY 02/18/25 02/18/25 1,000 mcg tablet (Vitamin B-12) Previous Rx's Medication Instructions Recorded lisinopril 10 mg tablet 10 mg PO QAM #90 tabs 10/04/24 metformin 500 mg tablet 500 mg PO BID #180 tabs 10/04/24 rosuvastatin 5 mg tablet 5 mg PO HS #90 tabs 10/04/24 Results & Data (ED) Vital Signs Vital Signs - 24 hr 02/18/25 22:39 02/18/25 22:42 02/19/25 00:14 Temperature 36.7 C Temperature Source Oral Pulse Rate 91 H 86 Pulse Rate [Apical] 82 Pulse Rhythm [Apical] Regular Pulse Strength [Apical] Normal Respiratory Rate 14 14 Respiratory Effort / Characteristics Non-Labored Respiratory Depth Normal Respiratory Pattern Regular Blood Pressure 166/95 H Blood Pressure [Right Arm] 140/72 Blood Pressure Mean 118 Blood Pressure Mean [Right Arm] 94 Blood Pressure Position [Right Arm] Lying Pulse Oximetry 98 96 Oxygen Delivery Method Room Air Room Air Sepsis Recent Fever Within 48 Hours No Sepsis New/Unexplained Change in Mental Status N/A Sepsis Action Taken by Nursing No Action Required Laboratory Data 02/18/25 22:55 02/18/25 22:55 Lab Results 02/18/25 Range/Units 22:55 WBC 15.47 H (4.8-10.8) K/ul RBC 5.56 (4.70-6.10) M/uL Hgb 15.6 (14.0-18.0) g/dL Hct 47.5 (42.0-52.0) % MCV 85.4 (80.0-100.0) fL MCH 28.1 (25.0-34.0) pg MCHC 32.8 (32.0-36.0) g/dL RDW Std Deviation 48.7 H (36.4-46.3) fL RDW Coeff of Roseann 15.5 H (11.5-14.5) % Plt Count 241 (130-400) K/uL MPV 9.0 L (9.4-12.4) fL Immature Gran % (Auto) 0.5 % Neut % (Auto) 79.4 % Lymph % (Auto) 11.4 % [place] % (Auto) 7.8 % Eos % (Auto) 0.4 % Baso % (Auto) 0.5 % Neut # (Auto) 12.28 H (1.40-6.50) K/uL Lymph # (Auto) 1.77 (1.20-3.40) K/uL [place] # (Auto) 1.21 H (0.11-0.59) K/uL Eos # (Auto) 0.06 (0.00-0.50) K/uL Baso # (Auto) 0.07 (0.00-0.20) K/uL Immature Gran # (Auto) 0.08 (0.01-0.20) K/uL Sodium 135 L (136-145) mmol/L Potassium 5.0 (3.5-5.1) mmol/L Chloride 98 (98-107) mmol/L Carbon Dioxide 29 (21-32) mmol/L Anion Gap 8 (3-11) BUN 26 H (6-23) mg/dl Creatinine 1.22 (0.6-1.4) mg/dl Est Cr Clr Drug Dosing 82.0 ml/min eGFR 62.99 BUN/Creatinine Ratio 21.3 H (10-20) Glucose 122 H (70-99(Fasting)) mg/dl Calcium 9.8 (8.6-10.3) mg/dl Total Bilirubin 0.5 (0.2-1.0) mg/dl AST 15 (13-39) U/L ALT 21 (7-52) U/L Alkaline Phosphatase 63 (34-104) U/L Total Protein 7.5 (6.0-8.3) gm/dl Albumin 4.4 (3.4-5.0) gm/dl Globulin 3.1 (2.5-4.0) gm/dl Albumin/Globulin Ratio 1.4 (0.9-2) Administered Medications Discontinued Medications Methylprednisolone (Methylprednisolone 125 Mg/2 Ml Vial) 125 mg IV NOW STA Stop: 02/18/25 22:37 Last Admin: 02/18/25 23:25 Dose: 125 mg Documented By: vgr Morphine Sulfate (Morphine Sulfate 4 Mg/Ml 1 Ml Carp\\Vial) 4 mg IV NOW STA Stop: 02/18/25 22:37 Last Admin: 02/18/25 23:25 Dose: 4 mg Documented By: vgr Ondansetron HCl (Ondansetron Inj 2 Mg/Ml 2 Ml Vial) 4 mg IV NOW STA Stop: 02/18/25 22:37 Last Admin: 02/18/25 23:26 Dose: 4 mg Documented By: vgr Imaging Data Radiologist's Impression: Lumbar Spine CT 02/18/25 22:35 Exam(s): CT L SPINE EXAM: CT Lumbar Spine Without Intravenous Contrast CLINICAL HISTORY: Reason for exam: L low back pain, s/p twisting injury. PAIN: Pain Notes: L low back pain, s/p twisting injury TECHNIQUE: Axial computed tomography images of the lumbar spine without intravenous contrast. CTDI is 56 mGy and DLP is 1598 mGy-cm. Automated exposure control was utilized for the study. A dose lowering technique was utilized adhering to the principles of ALARA. COMPARISON: No relevant prior studies available. FINDINGS: Vertebrae: L1 superior endplate compression deformity of indeterminate age moderate bilateral foraminal narrowing at L1-L2 L2-L3 L3-L4 and L4-L5. Discs/spinal canal/neural foramina: No acute findings. No spinal canal stenosis. Soft tissues: Unremarkable. IMPRESSION: Age-indeterminate L1 superior endplate compression deformity. Correlate clinically for point tenderness in this region. Further evaluation MRI may be helpful to establish chronicity Electronically signed by: Artemio White MD 02/19/25 00:00 AM Discharge Plan Visit Data Chief Complaint: Weakness Stated Complaint: Weakness, Lower Back Pain, L Hip Pain ED Provider: Ash Mcnally Discharge Problem: Back pain Patient Disposition: Admitted As Inpatient Condition: Fair Forms Stand Alone Forms: [facility] Prescriptions Prescriptions: No Action cholecalciferol (vitamin D3) 25 mcg (1,000 unit) capsule 50 mcg PO DAILY gabapentin 300 mg capsule 300 mg PO HS lisinopril 10 mg tablet 10 mg PO QAM Qty: 90 3RF Rx Instructions: TAKE 1 TABLET EVERY DAY metformin 500 mg tablet 500 mg PO BID Qty: 180 1RF rosuvastatin 5 mg tablet 5 mg PO HS Qty: 90 3RF cyanocobalamin (vitamin B-12) [Vitamin B-12] 1,000 mcg Tablet 1,000 mcg PO DAILY Referrals Referrals: Brando Mueller CRNP [Primary Care Provider] - Discharge Problem: Back pain Qualifiers: Back pain location: low back pain Chronicity: acute Back pain laterality: left Sciatica presence: with sciatica Sciatica laterality: sciatica of left side Q ualified Code(s): M54.42 - Lumbago with sciatica, left side
[2025-02-18 23:09] LABS: Hematocrit (blood only) 47.5 % (42.0-52.0); Hemoglobin 15.6 g/dL (14.0-18.0); Immature Granulocytes # (auto) 0.08 K/uL (0.01-0.20); Immature Granulocytes % (auto) 0.5 %; Mean Corpuscular Hemoglobin 28.1 pg (25.0-34.0); Mean Corpuscular Volume 85.4 fL (80.0-100.0); Platelet Count 241 K/uL (130-400); RDW Standard Deviation 48.7 fL (36.4-46.3); Red Blood Count 5.56 M/uL (4.70-6.10); White Blood Count 15.47 K/ul (4.8-10.8)
[2025-02-18] MEDS: MoRPHine SULFATE 4 MG/ML 1 ML CARP\\VIAL IV STA (23:25)
[2025-02-18] MEDS: ONDANSETRON INJ 2 MG/ML 2 ML VIAL IV STA (23:26)
[2025-02-18 23:27] LABS: Alanine Aminotransferase 21.0 U/L (7-52); Albumin Globulin Ratio 1.4 (0.9-2); Albumin Level 4.4 gm/dl (3.4-5.0); Alkaline Phosphatase 63.0 U/L (34-104); Anion Gap 8.0 (3-11); Bilirubin,Total 0.5 mg/dl (0.2-1.0); Blood Urea Nitrogen 26.0 mg/dl (6-23); Calcium 9.8 mg/dl (8.6-10.3); Carbon Dioxide 29.0 mmol/L (21-32); Chloride 98.0 mmol/L (98-107); Creatinine Clr Calc Pharmacy 82.0 ml/min; Globulin 3.1 gm/dl (2.5-4.0); Glucose 122.0 mg/dl (70-99(Fasting)); Potassium 5.0 mmol/L (3.5-5.1); Sodium 135.0 mmol/L (136-145); Total Protein 7.5 gm/dl (6.0-8.3)
--- NOTE | 2025-02-19 00:01 | CT Scan Report ---
Exam(s): CT L SPINE EXAM: CT Lumbar Spine Without Intravenous Contrast CLINICAL HISTORY: Reason for exam: L low back pain, s/p twisting injury. PAIN: Pain Notes: L low back pain, s/p twisting injury TECHNIQUE: Axial computed tomography images of the lumbar spine without intravenous contrast. CTDI is 56 mGy and DLP is 1598 mGy-cm. Automated exposure control was utilized for the study. A dose lowering technique was utilized adhering to the principles of ALARA. COMPARISON: No relevant prior studies available. FINDINGS: Vertebrae: L1 superior endplate compression deformity of indeterminate age moderate bilateral foraminal narrowing at L1-L2 L2-L3 L3-L4 and L4-L5. Discs/spinal canal/neural foramina: No acute findings. No spinal canal stenosis. Soft tissues: Unremarkable. IMPRESSION: Age-indeterminate L1 superior endplate compression deformity. Correlate clinically for point tenderness in this region. Further evaluation MRI may be helpful to establish chronicity Electronically signed by: Artemio White MD 02/19/25 00:00 AM
--- NOTE | 2025-02-19 01:02 | History & Physical Report ---
Date of Service February 19, 2025 Assessment & Plan (1) Ambulatory dysfunction: (2) Back pain: (3) Diabetes mellitus: (4) B12 deficiency: (5) BPH NOS w ur obs/LUTS: (6) Primary lateral scleroses: (7) Moderate obstructive sleep apnea: (8) Hypertension: (9) Hyperlipidemia: Plan 70 yo male PMHx primary lateral sclerosis with chronic RLE weakness, T2DM not on insulin, HTN, HLD, JAGDEEP, BPH w/ LUTS, history of frequent PVCs, bigeminy, chronic back pain admitted with intractable L sided back pain with radiculopathy. #Intractable Low Back Pain with L-sciatica / Ambulatory Dysfunction s/p methylprednisolone in ED Continue pain control with Tylenol, oxycodone, Flexeril Continue home gabapentin Consider ongoing steroids - deferred at this time PT/OT ordered Ortho/Spine consulted - appreciate recommendations #Leukocytosis Unclear etiology, no current signs of infection, pt has not been ill recently, not on chronic steroids Follow CBC, monitor for fevers or signs of infection #Primary Lateral Sclerosis Follows with [facility] neurology Primarily with R sided LE weakness and spasticity Stable - no new R sided symptoms #T2DM Metformin held Most recent A1c 6.0 - repeat ordered Has never been on insulin No Basal ordered ACHS BSG checks SSI w/ CF 25, CR 15 #HTN Continue lisinopril K+ borderline high - trend BMP, hold lisinopril if K continues to rise #HLD Continue Crestor FENGI: T2DM diet Code status: DNR/DNI DVT prophylaxis: SCDs pending surgical evaluation - consider chemical prophylaxis if no plan for surgery Disposition: med/surg - expect discharge in 1-2 days pending clinical course History of Present Illness Primary Care Provider: REYNALDO Oshea 70 yo male PMHx primary lateral sclerosis with chronic RLE weakness, T2DM not on insulin, HTN, HLD, JAGDEEP, BPH w/ LUTS, history of frequent PVCs, bigeminy, chronic back pain admitted with intractable L sided back pain with radiculopathy. Prior to arrival the pt was attempting to get out of a vehicle and twisted his back resulting in left lower back pain with radiation down his left leg. He has exquisite pain with movement. He has no loss of strength or sensation. He has no other complaints. Denies CP, SOB, abd pain, N/V/D, loss of control of bowel or bladder function. Pain is significantly worse with movement and severe enough that the patient is unable to effectively ambulate He has long standing history of LBP. In October 2024 he had an MRI that demonstrated chronic compression fracture at L2, intervertebral height loss most prominent at L5/S1 level, among other pathology. He never followed up on this imaging. ED Course: Labs reveal leukocytosis, mild hyponatremia, otherwise labs largely unremarkable CT Lumbar Spine: Vertebrae: L1 superior endplate compression deformity of indeterminate age moderate bilateral foraminal narrowing at L1-L2 L2-L3 L3-L4 and L4-L5.Discs/spinal canal/neural foramina: No acute findings. No spinal canal stenosis. Soft tissues: Unremarkable. Received 125mg methylprednisolone, morphine, Zofran Allergies Allergy/AdvReac Type Severity Reaction Status Date / Time aspirin Allergy Intermediate Hives Verified 02/18/25 23:14 NSAIDS (Non-Steroidal Allergy Intermediate Hives Verified 02/18/25 23:14 Anti-Inflamma tizanidine AdvReac Intermediate "made me Verified 02/18/25 23:14 feel goofy and funny" Home Medications Medication Instructions Recorded Confirmed Type cholecalciferol (vitamin D3) 25 50 mcg PO DAILY 10/05/23 02/18/25 History mcg (1,000 unit) capsule gabapentin 300 mg capsule 300 mg PO HS 04/18/24 02/18/25 History lisinopril 10 mg tablet 10 mg PO QAM #90 tabs 10/04/24 02/18/25 Rx metformin 500 mg tablet 500 mg PO BID #180 tabs 10/04/24 02/18/25 Rx rosuvastatin 5 mg tablet 5 mg PO HS #90 tabs 10/04/24 02/18/25 Rx cyanocobalamin (vitamin B-12) 1,000 mcg PO DAILY 02/18/25 02/18/25 History 1,000 mcg tablet (Vitamin B-12) Past Med/Surg History Problem List (Updated 02/19/25 @ 04:45 by Tawanda Delgado DO) Ambulatory dysfunction Back pain (Acute) Diabetes mellitus Frequent PVCs Ventricular bigeminy S/P laparoscopic cholecystectomy Cholelithiasis Hyponatremia RUQ pain Total bilirubin, elevated (Acute) Transaminitis (Acute) Abdominal pain, acute, epigastric (Acute) B12 deficiency BPH NOS w ur obs/LUTS 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 NSAID sensitivity (Acute) Moderate obstructive sleep apnea (Acute) Impaired fasting glucose (Acute) Hypertension (Acute) Hyperlipidemia (Acute) BMI 45.0-49.9, adult (Acute) Medical History History of seizure Bradycardia Prediabetes BMI 45.0-49.9, adult Transaminitis Rosacea Osteoarthritis Hypertension Hyperlipidemia Primary lateral sclerosis Chest pain Cholelithiasis BPH loc w urin obs/LUTS Sleep apnea Chronic fatigue syndrome Aspirin allergy Heavy alcohol use Surgical History Hx laparoscopic cholecystectomy (08/31/24) Hx of vasectomy History of tooth extraction History of colonoscopy Family History Mother Lung cancer Father Cardiac disorder Unknown Myocardial infarction Other No family history of adverse response to anesthesia Denies family history of Ovarian cancer Prostate cancer Breast cancer Colorectal cancer Social History Smoking Status: Never smoker Tobacco Type: Smokeless Tobacco (Dip or Chew) Age Started Using Tobacco: 14; Age Quit Using Tobacco: 23; packs per day: 0.5; Cigarettes Per Day: 1/2 can per day; Second Hand Exposure: No; Do You Dip or Chew Tobacco: Yes (1/2 can per day x 30 days); Tobacco Cessation Education Requested by Patient: No Hx Alcohol Use: Yes Alcohol type: beer Alcohol Intake Frequency Comment: 3-4 BEERS PER DAY Hx Substance Use: No Preferred Language: Mauritanian Communication Ability: Effective Visual Impairment: No Limitations Hearing Ability: Normal Commercial Real Estate Appraiser Required: No Beliefs That Will Affect Care: None marital status: Current Living Situation: Spouse Current Living Situation Comment: lives in 1 story home with current occupational status: retired and disabled Other Information That Helps Us Care for You: No Feels Safe at Home: Yes Safety Concerns: Feels Safe At This Time Childhood Exposure to Second-Hand Smoke: No Diet: other Diet Comment: low fat diet caffeine: Yes during the past year weight has: increased > 10 lbs Dental Care, Regularly: Yes Physical Activity Frequency: Other Physical Activity Frequency Comment: LIMITED BY PHYSICAL CONDITION - DISABLED. Seatbelt Use: always Sunscreen Use: No Assistive Devices: Cane, CPAP and Glasses Review of Systems Review of Systems: reviewed, per HPI Physical Exam Physical Exam: Constitutional: age appropriate, obese, no acute distress HEENT: NCAT, no conjunctival injection CV: regular rhythm, no murmur appreciated, extremities well-perfused, no LE edema Resp: CTABL, no wheezes/rales/rhonchi appreciated, no increased work of breathing GI: nondistended MSK: no gross deformities appreciated, strength and sensation intact in b/l LE Skin: warm, dry, no rash appreciated Neuro: alert, oriented, no focal neurologic deficit appreciated Results & Data Results & Data Vital Signs (Past 12 Hours) Vital Signs Temp Pulse Pulse Resp BP BP Pulse Ox 02/19/25 00:14 82 14 140/72 96 02/18/25 22:42 86 02/18/25 22:39 36.7 C 91 H 14 166/95 H 98 O2 Del Method 02/19/25 00:14 Room Air 02/18/25 22:42 02/18/25 22:39 Room Air Code Status & VTE Plan VTE Prophylaxis Plan VTE Prophylaxis will be ordered: Yes Supervising Physician Co-Signing Physician Notes Attending addendum: I have physically seen this patient, have supervised the medical residents activities, and agree with the H&P unless as otherwise noted. Assessment and Plan: The patient is a 70-year-old male with past medical history including primary lateral sclerosis with chronic right lower extremity weakness, diabetes mellitus type 2 insulin requiring, hypertension, hyperlipidemia, JAGDEEP, BPH with LUTS, history of frequent PVCs/bigeminy, and chronic back pain. He presents to the emergency department with more acute worsening of his back pain and radiculo primo. Intractable low back pain with left sciatica/ambulatory dysfunction- Given methylprednisolone 325 mg IV, morphine 4 mg IV, and Zofran 4 mg IV from the ED Continue outpatient regimen of Tylenol, oxycodone, gabapentin, and Flexeril Consult PT/OT Consult orthopedic spine surgery Primary lateral sclerosis- Follows with [facility] neurology Stable at this time Diabetes mellitus- Holding metformin Placed on Accu-Cheks with NovoLog SSI as noted May expect increase in sugar after Solu-Medrol in the ED Hypertension- Continue lisinopril Monitor K Hperlipidemia- continue rosuvastatin Resident Activity Tracking Resident Involvement: Resident Care Provided Care Provided: Adult Hospital Medicine (2) Back pain Back pain laterality: left Back pain location: low back pain Chronicity: acute Sciatica laterality: sciatica of left side Sciatica presence: with sciatica Qualified Code(s): M54.42 - Lumbago with sciatica, left side (3) Diabetes mellitus Diabetes mellitus complication status: without complication Diabetes mellitus long-term insulin use: without long-term use Diabetes mellitus type: type 2 Qualified Code(s): E11.9 - Type 2 diabetes mellitus without complications (8) Hypertension Hypertension type: essential hypertension Qualified Code(s): I10 - Essential (primary) hypertension (9) Hyperlipidemia Hyperlipidemia type: unspecified Qualified Code(s): E78.5 - Hyperlipidemia, unspecified
[2025-02-19] MEDS ORDERED: ONDANSETRON INJ 2 MG/ML 2 ML VIAL IV PRN (02:01)
[2025-02-19] MEDS ORDERED: ALUMINUM/MAGNESIUM SUSP 30 ML UDC PO PRN (02:01)
[2025-02-19] MEDS ORDERED: CARBOHYDRATES FOR HYPOGLYCEMIA PO PRN (02:01)
[2025-02-19] MEDS ORDERED: GLUCOSE 40% GEL 15 GM TUBE PO PRN (02:01)
[2025-02-19] MEDS ORDERED: GLUCAGON FOR INJ 1 MG VIAL SQ PRN (02:01)
[2025-02-19] MEDS ORDERED: MAGNESIUM HYDROXIDE SUSP 30 ML UDC PO PRN (02:01)
[2025-02-19] MEDS ORDERED: GLUCOSE 10 TAB/TUBE PO PRN (02:01)
[2025-02-19] MEDS ORDERED: DEXTROSE 50% 50 ML SYRINGE IV PRN (02:01)
[2025-02-19] MEDS: CYCLOBENZAPRINE HCL 5 MG TAB PO SCH (02:15)
[2025-02-19 03:05] LABS: Appearance Urine Clear (Clear); Bacteria Urine Automated None Seen (None Seen); Cast Urine Automated 0-2 /lpf (0-2); Epithelial Cell Urine Auto 0-2 /hpf (0-2); Glucose Urine UA Negative (Negative); RBC Urine Automated 0-2 /hpf (0-2); WBC Urine Automated 0-5 /hpf (0-5)
--- NOTE | 2025-02-19 07:16 | Hospitalist Progress Note ---
Date of Service February 19, 2025 Assessment & Plan (1) Ambulatory dysfunction: (2) Back pain: (3) Diabetes mellitus: (4) B12 deficiency: (5) BPH NOS w ur obs/LUTS: (6) Primary lateral scleroses: (7) Moderate obstructive sleep apnea: (8) Hypertension: (9) Hyperlipidemia: Plan 70 yo male PMHx primary lateral sclerosis with chronic RLE weakness, T2DM not on insulin, HTN, HLD, JAGDEEP, BPH w/ LUTS, history of frequent PVCs, bigeminy, chronic back pain admitted with intractable L sided back pain with radiculopathy. #Intractable Low Back Pain with L-sciatica / Ambulatory Dysfunction s/p methylprednisolone in ED Continue pain control with Tylenol, oxycodone, Flexeril Increase gabapentin 300mg from OID to BID PT/OT ordered Ortho/Spine consulted - appreciate recommendations. Trial Physical Therapy for now. If not able to tolerate physical Therapy, then will need MRI #Leukocytosis Unclear etiology, no current signs of infection, pt has not been ill recently, not on chronic steroids Follow CBC, monitor for fevers or signs of infection #Primary Lateral Sclerosis Follows with [facility] neurology Primarily with R sided LE weakness and spasticity Stable - no new R sided symptoms #T2DM Metformin held Most recent A1c 6.0 - repeat ordered Has never been on insulin No Basal ordered ACHS BSG checks SSI w/ CF 25, CR 15 #HTN Continue lisinopril K+ borderline high - trend BMP, hold lisinopril if K continues to rise #HLD Continue Francis SCHMITZ: T2DM diet Code status: DNR/DNI DVT prophylaxis: Lovenox Disposition: med/surg - expect discharge in 1-2 days pending clinical course Admission and Anticipated Discharge Date Admission Date: February 19, 2025 Supervising Physician Co-Signing Physician Notes Attending attestation Pt seen and examined in concert with Dr. Lopez. In agreement with the documented findings as noted in the resident documentation with any exceptions or additions as noted here. Pain is absent with stationary positioning in bed and moderately controlled with current regimen for movement/activity without change in bowel/bladder function or strength reported. VS as noted. On examination, S1/S2 nl RRR no MCG. CTAB. Abd NT/ND BS+ve. WBC 15.47, Na 135, Cr 1.22, A1c 6.4% Intractable lower back pain with sciatica and ambulatory dysfunction - ortho spine consult - PT/OT. Increased gabapentin to 300mg BID, if tolerated may benefit from further increase. Following d/w resident, will repeat dose of methylprednisolone 40mg and monitor WBC and patient response, consider ongoing steroid therapy. Pain control as noted. Primary lateral sclerosis with intermittent spasm - [facility] neurology patient - no new symptoms reported, monitor for changes DMII - A1c 6.4% - continue SSI, can resume metformin at discharge Else see resident documentation as noted. Hannah Henderson was seen and examined in the bedside this morning. He reports he is not having back pain currently as he is not moving. Denies any new concerns or events. Review of Systems Review of Systems: reviewed, per HPI Physical Exam Physical Exam: Constitutional: Morbidly obese, not in acute distress HEENT: Atraumatic, Normocephalic, No conjunctival injection CVS: S1 S2 no murmur, Regular Rhythm, no LE edema Respiratory: BL equal air entry with NVBS. No rhonchi, wheezes, or crackles. No increased work of breathing Skin: Warm, Dry, No rashes Neuro: Alert, Oriented to TPP, Psych: Cooperative on exam Results & Data Results & Data Vital Signs (Past 12 Hours) Vital Signs Temp Pulse Pulse Pulse Resp BP BP 02/19/25 02:15 36.8 C 75 18 145/88 H 02/19/25 01:35 74 16 117/73 02/19/25 00:14 82 14 02/18/25 22:42 86 02/18/25 22:39 36.7 C 91 H 14 166/95 H BP Pulse Ox O2 Del Method 02/19/25 02:15 96 Room Air 02/19/25 01:35 94 Room Air 02/19/25 00:14 140/72 96 Room Air 02/18/25 22:42 02/18/25 22:39 98 Room Air Resident Activity Tracking Resident Involvement: Resident Care Provided Care Provided: Adult Hospital Medicine (2) Back pain Back pain laterality: left Back pain location: low back pain Chronicity: acute Sciatica laterality: sciatica of left side Sciatica presence: with sciatica Qualified Code(s): M54.42 - Lumbago with sciatica, left side (3) Diabetes mellitus Diabetes mellitus complication status: without complication Diabetes mellitus half-way insulin use: without half-way use Diabetes mellitus type: type 2 Qualified Code(s): E11.9 - Type 2 diabetes mellitus without complications (8) Hypertension Hypertension type: essential hypertension Qualified Code(s): I10 - Essential (primary) hypertension (9) Hyperlipidemia Hyperlipidemia type: unspecified Qualified Code(s): E78.5 - Hyperlipidemia, unspecified
[2025-02-19] MEDS: CHOLECALCIFEROL 25 MCG (1000 UNITS) TAB PO SCH (08:07)
[2025-02-19] MEDS: INSULIN ASPART PER UNIT CHARGE SC SCH (08:08)
[2025-02-19] MEDS: CYANOCOBALAMIN (B-12) 500 MCG TABLET PO SCH (08:08)
[2025-02-19 08:32] LABS: Hemoglobin A1C 6.4 % (4.5-5.6)
--- NOTE | 2025-02-19 11:40 | Orthopedic Consultation ---
Date of Consultation February 19, 2025 Assessment & Plan (1) Back pain: CAT scan of the cervical spine available for review performed 02/18/2025. There is questionable superior endplate fracture of L1. There is marked multilevel spondylosis and facet hypertrophy severe L5-S1 on the left. I discussed with this patient obtaining an MRI of the lumbar spine. He is somewhat hesitant secondary to his body habitus and comfort in the scan. I will trial physical therapy with the understanding if he is unable to tolerate therapy we will have to proceed with an MRI. Patient stands and agrees. History of Present Illness Reason for Consultation: Back pain Attending Physician: Dwayne Valdes MD History of Present Illness This is a 70-year-old male with multiple medical issues that presents yesterday with severe back pain. He states that yesterday when he tried to sit up his pain was quite debilitating. He has not been out of bed since admission. He denies any new onset of radicular pain. He does note symptoms radiating across the left upper buttock. Symptoms involving the thoracolumbar region. Allergies Allergy/AdvReac Type Severity Reaction Status Date / Time aspirin Allergy Intermediate Hives Verified 02/18/25 23:14 NSAIDS (Non-Steroidal Allergy Intermediate Hives Verified 02/18/25 23:14 Anti-Inflamma tizanidine AdvReac Intermediate "made me Verified 02/18/25 23:14 feel goofy and funny" Home Medications Medication Instructions Recorded Confirmed Type cholecalciferol (vitamin D3) 25 50 mcg PO DAILY 10/05/23 02/18/25 History mcg (1,000 unit) capsule gabapentin 300 mg capsule 300 mg PO HS 04/18/24 02/18/25 History lisinopril 10 mg tablet 10 mg PO QAM #90 tabs 10/04/24 02/18/25 Rx metformin 500 mg tablet 500 mg PO BID #180 tabs 10/04/24 02/18/25 Rx rosuvastatin 5 mg tablet 5 mg PO HS #90 tabs 10/04/24 02/18/25 Rx cyanocobalamin (vitamin B-12) 1,000 mcg PO DAILY 02/18/25 02/18/25 History 1,000 mcg tablet (Vitamin B-12) Patient History Medical History History of seizure Bradycardia Prediabetes BMI 45.0-49.9, adult Transaminitis Rosacea Osteoarthritis Hypertension Hyperlipidemia Primary lateral sclerosis Chest pain Cholelithiasis BPH loc w urin obs/LUTS Sleep apnea Chronic fatigue syndrome Aspirin allergy Heavy alcohol use Surgical History Hx laparoscopic cholecystectomy (08/31/24) Hx of vasectomy History of tooth extraction History of colonoscopy Family History Mother Lung cancer Father Cardiac disorder Unknown Myocardial infarction Other No family history of adverse response to anesthesia Denies family history of Ovarian cancer Prostate cancer Breast cancer Colorectal cancer Social History Smoking Status: Never smoker Tobacco Type: Smokeless Tobacco (Dip or Chew) Age Started Using Tobacco: 14; Age Quit Using Tobacco: 23; packs per day: 0.5; Cigarettes Per Day: 1/2 can per day; Second Hand Exposure: No; Do You Dip or Chew Tobacco: Yes (1/2 can per day x 30 days); Tobacco Cessation Education Requested by Patient: No Hx Alcohol Use: Yes Alcohol type: beer Alcohol Intake Frequency Comment: 3-4 BEERS PER DAY Hx Substance Use: No Preferred Language: Slovak Communication Ability: Effective Visual Impairment: No Limitations Hearing Ability: Normal Marketing Instructor Required: No Beliefs That Will Affect Care: None marital status: Current Living Situation: Spouse Current Living Situation Comment: lives in 1 story home with current occupational status: retired and disabled Other Information That Helps Us Care for You: No Feels Safe at Home: Yes Safety Concerns: Feels Safe At This Time Childhood Exposure to Second-Hand Smoke: No Diet: other Diet Comment: low fat diet caffeine: Yes during the past year weight has: increased > 10 lbs Dental Care, Regularly: Yes Physical Activity Frequency: Other Physical Activity Frequency Comment: LIMITED BY PHYSICAL CONDITION - DISABLED. Seatbelt Use: always Sunscreen Use: No Assistive Devices: Cane, CPAP and Glasses Physical Exam Physical Exam: Patient is in bed. Is visual strength testing lower extremities. There is sensitivity to palpation of the right lower extremity. Results & Data Vital Signs (Past 12 Hours) Vital Signs Temp Pulse Pulse Pulse Resp BP BP 02/19/25 07:19 36.6 C 68 14 133/78 02/19/25 02:15 36.8 C 75 18 145/88 H 02/19/25 01:35 74 16 117/73 02/19/25 00:14 82 14 BP Pulse Ox O2 Del Method 02/19/25 07:19 95 Room Air 02/19/25 02:15 96 Room Air 02/19/25 01:35 94 Room Air 02/19/25 00:14 140/72 96 Room Air (1) Back pain Back pain laterality: left Back pain location: low back pain Chronicity: acute Sciatica laterality: sciatica of left side Sciatica presence: with sciatica Qualified Code(s): M54.42 - Lumbago with sciatica, left side
[2025-02-19] MEDS: GABAPENTIN 300 MG CAP PO SCH (14:35)
[2025-02-19] MEDS: ENOXAPARIN INJ 40 MG/0.4 ML SYR SQ SCH (17:16)
--- NOTE | 2025-02-19 19:56 | Billing Data ---
Date of Service February 19, 2025 Coding Level of Care Code 53203 INT INP/OBS CARE
[2025-02-19] MEDS: ROSUVASTATIN CALCIUM 5 MG TAB PO SCH (20:30)
[2025-02-19] MEDS ORDERED: GABAPENTIN 300 MG CAP PO SCH (21:00)
[2025-02-20 08:09] LABS: Hematocrit (blood only) 42.8 % (42.0-52.0); Hemoglobin 14.4 g/dL (14.0-18.0); Immature Granulocytes # (auto) 0.15 K/uL (0.01-0.20); Immature Granulocytes % (auto) 0.9 %; Mean Corpuscular Hemoglobin 28.1 pg (25.0-34.0); Mean Corpuscular Volume 83.6 fL (80.0-100.0); Platelet Count 245 K/uL (130-400); RDW Standard Deviation 47.0 fL (36.4-46.3); Red Blood Count 5.12 M/uL (4.70-6.10); White Blood Count 17.49 K/ul (4.8-10.8)
[2025-02-20 08:30] LABS: Anion Gap 9.0 (3-11); Blood Urea Nitrogen 31.0 mg/dl (6-23); Calcium 9.5 mg/dl (8.6-10.3); Carbon Dioxide 25.0 mmol/L (21-32); Chloride 97.0 mmol/L (98-107); Creatinine Clr Calc Pharmacy 100.3 ml/min; Glucose 153.0 mg/dl (70-99(Fasting)); Magnesium 2.3 mg/dl (1.7-2.4); Potassium 4.7 mmol/L (3.5-5.1); Sodium 131.0 mmol/L (136-145)
[2025-02-20 08:42] LABS: INR 1.0 (0.9-1.1); Prothrombin Time 10.8 Seconds (9.0-12.0)
--- NOTE | 2025-02-20 11:13 | Hospitalist Progress Note ---
Date of Service February 20, 2025 Assessment & Plan (1) Ambulatory dysfunction: (2) Back pain: (3) Diabetes mellitus: (4) B12 deficiency: (5) BPH NOS w ur obs/LUTS: (6) Primary lateral scleroses: (7) Moderate obstructive sleep apnea: (8) Hypertension: (9) Hyperlipidemia: Plan 70 yo male PMHx primary lateral sclerosis with chronic RLE weakness, T2DM not on insulin, HTN, HLD, JAGDEEP, BPH w/ LUTS, history of frequent PVCs, bigeminy, chronic back pain admitted with intractable L sided back pain with radiculopathy. #Intractable Low Back Pain with L-sciatica / Ambulatory Dysfunction s/p methylprednisolone in ED Continue pain control with Tylenol, oxycodone, Flexeril Increase gabapentin 300mg from OID to BID PT/OT evaluation today. Patient would like to avoid MRI and hopefully home tomorrow #Leukocytosis(Resolved) #Primary Lateral Sclerosis Follows with [facility] neurology Primarily with R sided LE weakness and spasticity Stable - no new R sided symptoms #T2DM Metformin held Most recent A1c 6.0 - repeat ordered Has never been on insulin No Basal ordered ACHS BSG checks SSI w/ CF 25, CR 15 #HTN Continue lisinopril K+ borderline high - trend BMP, hold lisinopril if K continues to rise #HLD Continue Francis SCHMITZ: T2DM diet Code status: DNR/DNI DVT prophylaxis: Lovenox Disposition: med/surg - expect discharge in 1-2 days pending clinical course Admission and Anticipated Discharge Date Admission Date: February 19, 2025 Supervising Physician Co-Signing Physician Notes I personally examined the patient and verified all dang points of history and e xam, discussed case, and agree with decision making with Dr Lopez Back painpredominantly in his back, and around his hip. No significant radiation down his leg. Hurts a lot more with movement. Vitals noted, in general he is awake and alert pleasant no distress. HEENT normocephalic atraumatic mucous membranes moist. Breathing unlabored no accessory muscle use good effort. Skin without rashes pallor or icterus. Neuro without focal deficits. Musculoskeletal exam shows left sided pelvic musculature in the region of piriformis high tone, tender, decreased change of motionLAS and post isometric relaxation done with some improvement in range of motion. Patient tolerated well. Then taught patient how to do post isometric relaxation as a self stretch. Intractable back painhistory and exam entirely consistent with biomechanical (piriformis mediated lumbosacral strain)OMT as above. Voltaren gel 4 times daily. Mag sulfate 4 g x 1 as a muscle relaxant. Scheduled Tylenol. Continue PT/OT. Encouraged movement, encouraged ongoing stretching. Chronic osteoarthritis and morbid obesity with BMI of 49.3likely contributors to the cause of above. Started to discuss regular movement and ways to try to act to help with chronic back pain management and prevention leukocytosisalmost certainly steroid effectno signs or symptoms of infection (end of note he had a knee steroid injection about 2 weeks prior to admission) DVT prophylaxisLovenox Subjective Santiago was seen and examined in the bedside this morning. He reports he is not having back pain currently as he is not moving. Denies any new concerns or events. Review of Systems Review of Systems: reviewed, per HPI Physical Exam Physical Exam: Constitutional: Morbidly obese, not in acute distress HEENT: Atraumatic, Normocephalic, No conjunctival injection CVS: S1 S2 no murmur, Regular Rhythm, no LE edema Respiratory: BL equal air entry with NVBS. No rhonchi, wheezes, or crackles. No increased work of breathing Skin: Warm, Dry, No rashes Neuro: Alert, Oriented to TPP, Psych: Cooperative on exam Results & Data Results & Data Vital Signs (Past 12 Hours) Vital Signs Temp Pulse Resp BP Pulse Ox O2 Del Method 02/20/25 07:29 36.7 C 74 16 137/79 93 Room Air 02/20/25 07:10 Room Air Resident Activity Tracking Resident Involvement: Resident Care Provided Care Provided: Adult Hospital Medicine (2) Back pain Back pain laterality: left Back pain location: low back pain Chronicity: acute Sciatica laterality: sciatica of left side Sciatica presence: with sciatica Qualified Code(s): M54.42 - Lumbago with sciatica, left side (3) Diabetes mellitus Diabetes mellitus complication status: without complication Diabetes mellitus halfway insulin use: without roasterman use Diabetes mellitus type: type 2 Qualified Code(s): E11.9 - Type 2 diabetes mellitus without complications (8) Hypertension Hypertension type: essential hypertension Qualified Code(s): I10 - Essential (primary) hypertension (9) Hyperlipidemia Hyperlipidemia type: unspecified Qualified Code(s): E78.5 - Hyperlipidemia, unspecified
[2025-02-20] MEDS: ACETAMINOPHEN 500 MG TAB PO PRN (12:15)
[2025-02-20] MEDS: POLYETHYLENE (MIRALAX) 17 GM PACK PO PRN (13:16)
--- NOTE | 2025-02-20 19:46 | Billing Data ---
Date of Service February 20, 2025 Coding Level of Care Code 21737 SUB INP/OBS CARE MIN
[2025-02-20] MEDS: DICLOFENAC SOD 1% GEL 100 GM TUBE EXT SCH (21:19)
[2025-02-20] MEDS: ACETAMINOPHEN 500 MG TAB PO SCH (21:24)
[2025-02-20] MEDS: MAGNESIUM SULFATE / D5W 1 GM/100 ML BAG IV SCH (22:15)
[2025-02-21 08:01] LABS: Hematocrit (blood only) 43.5 % (42.0-52.0); Hemoglobin 14.4 g/dL (14.0-18.0); Immature Granulocytes # (auto) 0.05 K/uL (0.01-0.20); Immature Granulocytes % (auto) 0.5 %; Mean Corpuscular Hemoglobin 28.0 pg (25.0-34.0); Mean Corpuscular Volume 84.5 fL (80.0-100.0); Platelet Count 218 K/uL (130-400); RDW Standard Deviation 48.0 fL (36.4-46.3); Red Blood Count 5.15 M/uL (4.70-6.10); White Blood Count 10.26 K/ul (4.8-10.8)
[2025-02-21 08:21] LABS: Anion Gap 7.0 (3-11); Blood Urea Nitrogen 35.0 mg/dl (6-23); Calcium 9.0 mg/dl (8.6-10.3); Carbon Dioxide 29.0 mmol/L (21-32); Chloride 95.0 mmol/L (98-107); Creatinine Clr Calc Pharmacy 91.2 ml/min; Glucose 120.0 mg/dl (70-99(Fasting)); Potassium 4.6 mmol/L (3.5-5.1); Sodium 131.0 mmol/L (136-145)
--- NOTE | 2025-02-21 09:26 | Hospitalist Progress Note ---
Date of Service February 21, 2025 Assessment & Plan (1) Ambulatory dysfunction: (2) Back pain: (3) Diabetes mellitus: (4) B12 deficiency: (5) BPH NOS w ur obs/LUTS: (6) Primary lateral scleroses: (7) Moderate obstructive sleep apnea: (8) Hypertension: (9) Hyperlipidemia: Plan 70 yo male PMHx primary lateral sclerosis with chronic RLE weakness, T2DM not on insulin, HTN, HLD, JAGDEEP, BPH w/ LUTS, history of frequent PVCs, bigeminy, chronic back pain admitted with intractable L sided back pain with radiculopathy. #Intractable Low Back Pain with L-sciatica / Ambulatory Dysfunction Continue pain control with Tylenol, oxycodone stop Fexeril. Will switch to Diazepam 5mg PO HS Increase gabapentin 300mg from OID to BID PT/OT evaluation today. Patient would like to avoid MRI and hopefully home tomorrow #Leukocytosis(Resolved) #Primary Lateral Sclerosis Follows with [facility] neurology Primarily with R sided LE weakness and spasticity Stable - no new R sided symptoms #T2DM Metformin held Most recent A1c 6.0 - repeat ordered Has never been on insulin No Basal ordered ACHS BSG checks SSI w/ CF 25, CR 15 #HTN Continue lisinopril K+ borderline high - trend BMP, hold lisinopril if K continues to rise #HLD Continue Francis SCHMITZ: T2DM diet Code status: DNR/DNI DVT prophylaxis: Lovenox Disposition: med/surg - expect discharge in 1-2 days pending clinical course Admission and Anticipated Discharge Date Admission Date: February 19, 2025 Supervising Physician Co-Signing Physician Notes I personally examined the patient and verified all dang points of history and exam, discussed case, and agree with decision making with Dr Lopez pain about the same as yesterday. Not much at rest but hurts a lot whenever he is moving. Does not feel he is any better yet. presentexpressing severe concern about it being related to L4/spinal stenosis. Extensive discussions, utilized dermatome map as well as anatomic diagrams to explain my working diagnosis. Patient expressed good understanding, expressed skeptical understanding. Vitals noted, in general he is laying in bed no distress. Breathing unlabored no accessory muscle use good effort. Skin without rashes pallor or icterus. Left sided piriformis region musculature high tone less tender than yesterday, decreased range of motionLASimproved. Left sided lumbar paraspinal musculature high tone, tender, decreased range of motion (far more than any tenderness elicited by pushing on spinous processes of vertebrae themselves)LAS and direct myofascialimproved some. Patient tolerated well. Intractable back painhistory and exam entirely consistent with biomechanical (piriformis mediated lumbosacral strain, Secondary lumbar paraspinal spasm)OMT as above. Voltaren gel 4 times daily. Mag sulfate did not help much, switch to Valium as a muscle relaxant (stop cyclobenzaprine) continue PT/OT, likely to need rehab. PLS, Chronic osteoarthritis and morbid obesity with BMI of 49.3likely contributors to the cause of above. Started to discuss regular movement and ways to try to act to help with chronic back pain management and prevention leukocytosisalmost certainly steroid effectno signs or symptoms of infection (end of note he had a knee steroid injection about 2 weeks prior to admission) DVT prophylaxisLovenox Hannah Santiago was seen and examined in the bedside this morning. He reports he is still experiencing significant back pain similar in intensity as yesterday. Not comfortable at a point to return home. Review of Systems Review of Systems: reviewed, per HPI Physical Exam Physical Exam: Constitutional: Morbidly obese, not in acute distress HEENT: Atraumatic, Normocephalic, No conjunctival injection CVS: S1 S2 no murmur, Regular Rhythm, no LE edema Respiratory: BL equal air entry with NVBS. No rhonchi, wheezes, or crackles. No increased work of breathing Skin: Warm, Dry, No rashes Neuro: Alert, Oriented to TPP, Psych: Cooperative on exam Results & Data Results & Data Vital Signs (Past 12 Hours) Vital Signs Temp Pulse Resp BP Pulse Ox O2 Del Method 02/21/25 07:31 36.7 C 63 16 107/65 96 Room Air 02/20/25 22:27 36.7 C 71 18 122/70 95 Room Air Resident Activity Tracking Resident Involvement: Resident Care Provided Care Provided: Adult Hospital Medicine (2) Back pain Back pain laterality: left Back pain location: low back pain Chronicity: acute Sciatica laterality: sciatica of left side Sciatica presence: with sciatica Qualified Code(s): M54.42 - Lumbago with sciatica, left side (3) Diabetes mellitus Diabetes mellitus complication status: without complication Diabetes mellitus bed bug exterminator insulin use: without bed bug exterminator use Diabetes mellitus type: type 2 Qualified Code(s): E11.9 - Type 2 diabetes mellitus without complications (8) Hypertension Hypertension type: essential hypertension Qualified Code(s): I10 - Essential (primary) hypertension (9) Hyperlipidemia Hyperlipidemia type: unspecified Qualified Code(s): E78.5 - Hyperlipidemia, unspecified
--- NOTE | 2025-02-21 19:35 | Billing Data ---
Date of Service February 21, 2025 Coding Level of Care Code 44995 SUB INP/OBS CARE MIN
--- NOTE | 2025-02-21 19:36 | Billing Data ---
Date of Service February 21, 2025 Coding Level of Care Code 43259 SUB INP/OBS CARE MIN
[2025-02-21] MEDS: MELATONIN 3 MG TAB PO PRN (20:59)
--- NOTE | 2025-02-22 07:40 | Hospitalist Progress Note ---
Date of Service February 22, 2025 Assessment & Plan (1) Ambulatory dysfunction: (2) Back pain: (3) Diabetes mellitus: (4) B12 deficiency: (5) BPH NOS w ur obs/LUTS: (6) Primary lateral scleroses: (7) Moderate obstructive sleep apnea: (8) Hypertension: (9) Hyperlipidemia: Plan 70 yo male PMHx primary lateral sclerosis with chronic RLE weakness, T2DM not on insulin, HTN, HLD, JAGDEEP, BPH w/ LUTS, history of frequent PVCs, bigeminy, chronic back pain admitted with intractable L sided back pain with radiculopathy. #Intractable Low Back Pain with L-sciatica / Ambulatory Dysfunction Continue pain control with Tylenol, oxycodone stop Fexeril. Will switch to Diazepam 10mg PO BID Increase gabapentin 300mg from OID to BID Undergoing PT/OT Given pain isn't improved, will order MRI of Lumbar spine today. #Leukocytosis(Resolved) #Primary Lateral Sclerosis Follows with [facility] neurology Primarily with R sided LE weakness and spasticity Stable - no new R sided symptoms #T2DM Metformin held Most recent A1c 6.0 - repeat ordered Has never been on insulin No Basal ordered ACHS BSG checks SSI w/ CF 25, CR 15 #HTN Continue lisinopril K+ borderline high - trend BMP, hold lisinopril if K continues to rise #HLD Continue Francis SCHMITZ: T2DM diet Code status: DNR/DNI DVT prophylaxis: Lovenox Disposition: med/surg - expect discharge in 1-2 days pending clinical course Admission and Anticipated Discharge Date Admission Date: February 19, 2025 Supervising Physician Co-Signing Physician Notes I personally examined the patient and verified all dang points of history and exam, discussed case, and agree with decision making with Dr Lopez Pain in the same place, but on directed questioning it is "less sharp"whenever we clarify further, now it is still very intense but does not make him feel like he needs to drop to his knees. Vitals noted, in general he is awake and alert pleasant no distress. HEENT normocephalic atraumatic mucous membranes moist. Breathing unlabored no accessory muscle use good effort. Skin without rashes pallor or icterus. Musculoskeletal exam shows left-sided lumbar paraspinals high tone, tender, decreased range of motiondirect myofascialsome improvement. For clarification sake, he does not have tenderness on spinous processes. Intractable back painhistory and exam entirely consistent with biomechanical (piriformis mediated lumbosacral strain, Secondary lumbar paraspinal spasm)OMT as above. Voltaren gel 4 times daily. Mag sulfate did not help much, switched to Valium as a muscle relaxant , Continue PT and OT, may need rehab. Given his concerns, and slow progress, not unreasonable to pursue MRI to ensure there is no other occult pathology at play. We discussed given his concerns, even an MRI that is unrevealing could be in a way "therapeutic" and that the added reassurance may help him be able to relax more, which may help the muscle spasm let up easier. Given that the muscle spasm has been slow to improve, may need to consider trigger point injections. PLS, Chronic osteoarthritis and morbid obesity with BMI of 49.3likely contributors to the cause of above. Started to discuss regular movement and ways to try to act to help with chronic back pain management and prevention leukocytosisalmost certainly steroid effectno signs or symptoms of infection (end of note he had a knee steroid injection about 2 weeks prior to admission) DVT prophylaxisLovenox Subjective Santiago was seen and examined in the bedside this morning. He reports he is still experiencing significant back pain similar in intensity as yesterday. Not comfortable at a point to return home. Review of Systems Review of Systems: reviewed, per HPI Physical Exam Physical Exam: Constitutional: Well appearing, No acute distress, PILCCOD: Negative HEENT: Atraumatic, Normocephalic, No conjunctival injection CVS: S1 S2 no murmur, Regular Rhythm, no LE edema Respiratory: BL equal air entry with NVBS. No rhonchi, wheezes, or crackles. No increased work of breathing GI: Soft, Nondistended, Nontender, Normal Bowel sounds + MSK: Tenderness in lower back, paravertebral spasm + Skin: Warm, Dry, No rashes Neuro: Alert, Oriented to TPP, No Focal deficit Psych: Mood and Affect congruent, Cooperative on exam Results & Data Results & Data Vital Signs (Past 12 Hours) Vital Signs Temp Pulse Resp BP Pulse Ox O2 Del Method 02/22/25 07:15 36.6 C 72 16 130/78 95 Room Air 02/21/25 23:01 36.7 C 79 18 116/68 91 Room Air Resident Activity Tracking Resident Involvement: Resident Care Provided Care Provided: Adult Hospital Medicine (2) Back pain Back pain laterality: left Back pain location: low back pain Chronicity: acute Sciatica laterality: sciatica of left side Sciatica presence: with sciatica Qualified Code(s): M54.42 - Lumbago with sciatica, left side (3) Diabetes mellitus Diabetes mellitus complication status: without complication Diabetes mellitus bed bug exterminator insulin use: without senior care use Diabetes mellitus type: type 2 Qualified Code(s): E11.9 - Type 2 diabetes mellitus without complications (8) Hypertension Hypertension type: essential hypertension Qualified Code(s): I10 - Essential (primary) hypertension (9) Hyperlipidemia Hyperlipidemia type: unspecified Qualified Code(s): E78.5 - Hyperlipidemia, unspecified
--- NOTE | 2025-02-22 09:47 | Orthopedic Progress Note ---
Date of Service February 22, 2025 Assessment & Plan (1) Ambulatory dysfunction: Plan: I did discuss with the patient obtaining an MRI. He is concerned secondary to his body habitus of his ability to tolerate this machine. He is however willing to attempt an MRI. He may require sedation. If he does not improve today we would recommend he have an MRI lumbar spine without gadolinium. Admission and Anticipated Discharge Date Admission Date: February 19, 2025 Subjective Patient continues to complain of back pain radiating to his left buttock. He gets occasional spasms in his back. He denies pain extending below the knee. He is tolerating physical therapy. Physical Exam Physical Exam: Patient is currently in bed. Neurologically intact. Results & Data Vital Signs (Past 12 Hours) Vital Signs Temp Pulse Resp BP Pulse Ox O2 Del Method 02/22/25 07:15 36.6 C 72 16 130/78 95 Room Air 02/21/25 23:01 36.7 C 79 18 116/68 91 Room Air
[2025-02-22] MEDS: POLYETHYLENE (MIRALAX) 17 GM PACK PO PRN (10:57)
--- NOTE | 2025-02-22 17:48 | Billing Data ---
Date of Service February 22, 2025 Coding Level of Care Code 82839 SUB INP/OBS CARE MIN
[2025-02-22] MEDS ORDERED: LORazepam Inj 1 MG in SYRINGE 0.5 ML IV PRN ×2 (18:00→20:01)
[2025-02-22] MEDS: LORazepam Inj 1 MG in SYRINGE 0.5 ML IV PRN (19:51)
[2025-02-22] MEDS: ENOXAPARIN INJ 40 MG/0.4 ML SYR SQ SCH (20:52)
[2025-02-22] MEDS: LIDOCAINE 5% 1 PATCH TD SCH (21:27)
--- NOTE | 2025-02-22 23:48 | Magnetic Resonance Report ---
Exam(s): MRI L SPINE Without Contrast EXAM: MR Lumbar Spine Without Intravenous Contrast CLINICAL HISTORY: Reason for exam: Lower back pain. OTHER: Other Notes: NO HX CANCER NO PREV. LUMBAR SURG NO RECENT INJURY LBP WITH NUMBNESS IN BOTH LEGS UNABLE TO AMBULATE TECHNIQUE: Magnetic resonance images of the lumbar spine without intravenous contrast in multiple planes. Moderate motion/artifact. COMPARISON: Lumbar spine CT 02/18/2025. FINDINGS: Vertebrae: Chronic superior endplate deformity L1. No marrow edema, acute compression deformity, discitis or osteomyelitis. Conus: No gross abnormal signal, motion artifact limits evaluation. Soft tissues: Moderate erector spinae muscle atrophy bilaterally. DISCS/SPINAL CANAL/NEURAL FORAMINA: L1-L2: Moderate left foraminal bulge and osteophyte, with mild left foraminal stenosis.. L2-L3: Mild bulge. L3-L4: Moderate foraminal bulging and mild bilateral foraminal stenosis. L4-L5: Moderate foraminal bulging, mild bilateral foraminal stenosis, and mild central spinal stenosis. L5-S1: Mild bulging. Thecal sac is terminating, no spinal stenosis. OTHER: Disc heights are well-preserved. No isolated disc herniation. No significant central spinal stenosis. Moderate to severe diffuse facet hypertrophy. IMPRESSION: 1. Mild central spinal stenosis at L4-5, degenerative. 2. Chronic superior endplate deformity L1. 3. No disc herniation, spinal stenosis, epidural hematoma/abscess, abnormal conus signal, compression deformity or discitis/osteomyelitis. 4. Erector spinae muscle atrophy bilaterally. 5. Moderate motion/artifact. Electronically signed by: Vonnie Ruiz M.D. 02/22/25 23:47 PM
[2025-02-23] MEDS: REMOVE LIDODERM PATCH SCH (08:12)
[2025-02-23] MEDS: MAGNESIUM SULFATE / D5W 1 GM/100 ML BAG IV SCH (11:33)
--- NOTE | 2025-02-23 13:07 | Hospitalist Progress Note ---
Date of Service February 23, 2025 Assessment & Plan (1) Ambulatory dysfunction: (2) Back pain: (3) Diabetes mellitus: (4) B12 deficiency: (5) BPH NOS w ur obs/LUTS: (6) Primary lateral scleroses: (7) Moderate obstructive sleep apnea: (8) Hypertension: (9) Hyperlipidemia: Plan 70 yo male PMHx primary lateral sclerosis with chronic RLE weakness, T2DM not on insulin, HTN, HLD, JAGDEEP, BPH w/ LUTS, history of frequent PVCs, bigeminy, chronic back pain admitted with intractable L sided back pain with radiculopathy. #Intractable Low Back Pain with L-sciatica / Ambulatory Dysfunction Suspect biomechanical. MRI of lumbar spine with no acute findings . Continue pain control with Tylenol, oxycodone stop Fexeril. Will switch to Diazepam 10mg PO BID Increase gabapentin 300mg from OID to BID Undergoing PT/OT. he is tolerating physical Therapy well #Leukocytosis(Resolved) #Primary Lateral Sclerosis Follows with [facility] neurology Primarily with R sided LE weakness and spasticity Stable - no new R sided symptoms #T2DM Metformin held Most recent A1c 6.0 - repeat ordered Has never been on insulin No Basal ordered ACHS BSG checks SSI w/ CF 25, CR 15 #HTN Continue lisinopril K+ borderline high - trend BMP, hold lisinopril if K continues to rise #HLD Continue Francis SCHMITZ: T2DM diet Code status: DNR/DNI DVT prophylaxis: Lovenox Admission and Anticipated Discharge Date Admission Date: February 19, 2025 Supervising Physician Co-Signing Physician Notes I personally examined the patient and verified all dang points of history and exam, discussed case, and agree with decision making with Dr Lopez Feels like pain is doing better. It was definitely worse for a little while after MRI, but this morning he was able to get up and walk with therapypain s till fairly significant, but the severe pain was few and far between more of a pinching or shooting then a persistent. Vitals noted, in general he is awake and alert pleasant no distress. HEENT normocephalic atraumatic mucous membranes moist. Breathing unlabored no accessory muscle use good effort. Skin without rashes pallor or icterus. Neuro without focal deficits. MRI unrevealing/reassuring. Intractable back painhistory and exam entirely consistent with biomechanical (piriformis mediated lumbosacral strain, Secondary lumbar paraspinal spasm)(reassured him that with MRI also not showing any striking findings this is almost certainly all muscular - which is also what has fit best with his hx and PE since i first evaluated him) OMT done several times throughout his hospital stay, held off today because he was laying in bed, comfortable, and his pain is overall improving. Voltaren gel 4 times daily. we will retry magnesium, given that initially it seemed like it maybe did not help much, but as I am getting to know him better, it seems that he has a difficulty voicing "shades of zhong" and his symptoms largely seem to be "present or absent"and over the last 4 days it does seem that his pain has been slowly improving, switched to Valium as a muscle relaxant additionally, Continue PT and OT, may need rehab. Given that the muscle spasm has been slow to improve, may need to consider trigger point injections. held off on this today too since he is doing better. PLS, Chronic osteoarthritis and morbid obesity with BMI of 49.3likely contributors to the cause of above. Started to discuss regular movement and ways to try to act to help with chronic back pain management and prevention leukocytosisalmost certainly steroid effectno signs or symptoms of infection (end of note he had a knee steroid injection about 2 weeks prior to admission) DVT prophylaxisLovenox Subjective Patient continues to complain of back pain radiating to his left buttock. He gets occasional spasms in his back. He denies pain extending below the knee. He is tolerating physical therapy. Review of Systems Review of Systems: reviewed, per HPI Physical Exam Physical Exam: Constitutional: Well appearing, No acute distress, PILCCOD: Negative HEENT: Atraumatic, Normocephalic, No conjunctival injection CVS: S1 S2 no murmur, Regular Rhythm, no LE edema Respiratory: BL equal air entry with NVBS. No rhonchi, wheezes, or crackles. No increased work of breathing GI: Soft, Nondistended, Nontender, Normal Bowel sounds + MSK: Tenderness in lower back, paravertebral spasm + Skin: Warm, Dry, No rashes Neuro: Alert, Oriented to TPP, No Focal deficit Psych: Mood and Affect congruent, Cooperative on exam Results & Data Results & Data Vital Signs (Past 12 Hours) Vital Signs Temp Pulse Resp BP Pulse Ox O2 Del Method 02/23/25 07:30 Room Air 02/23/25 07:15 36.5 C 97 H 18 142/87 H 95 Room Air Resident Activity Tracking Resident Involvement: Resident Care Provided Care Provided: Adult Hospital Medicine (2) Back pain Back pain laterality: left Back pain location: low back pain Chronicity: acute Sciatica laterality: sciatica of left side Sciatica presence: with sciatica Qualified Code(s): M54.42 - Lumbago with sciatica, left side (3) Diabetes mellitus Diabetes mellitus type: type 2 Diabetes mellitus jail insulin use: without jail use Diabetes mellitus complication status: without complication Qualified Code(s): E11.9 - Type 2 diabetes mellitus without complications (8) Hypertension Hypertension type: essential hypertension Qualified Code(s): I10 - Essential (primary) hypertension (9) Hyperlipidemia Hyperlipidemia type: unspecified Qualified Code(s): E78.5 - Hyperlipidemia, unspecified
--- NOTE | 2025-02-23 13:12 | Billing Data ---
Date of Service February 23, 2025 Coding Level of Care Code 75354 SUB INP/OBS CARE MIN
[2025-02-24] MEDS: ENOXAPARIN INJ 40 MG/0.4 ML SYR SQ SCH (08:45)
--- NOTE | 2025-02-24 12:37 | Hospitalist Progress Note ---
Date of Service February 24, 2025 Assessment & Plan (1) Ambulatory dysfunction: (2) Back pain: (3) Diabetes mellitus: (4) B12 deficiency: (5) BPH NOS w ur obs/LUTS: (6) Primary lateral scleroses: (7) Moderate obstructive sleep apnea: (8) Hypertension: (9) Hyperlipidemia: Plan 70 yo male PMHx primary lateral sclerosis with chronic RLE weakness, T2DM not on insulin, HTN, HLD, JAGDEEP, BPH w/ LUTS, history of frequent PVCs, bigeminy, chronic back pain admitted with intractable L sided back pain with radiculopathy. He prefers to go to rehab before going home. CM working on rehab. If continues to feel better or more comfortable can possible ho home with home physical therapy. He is being admitted for pain management which is pretty controlled with current regimen. #Intractable Low Back Pain with L-sciatica / Ambulatory Dysfunction Suspect biomechanical. MRI of lumbar spine with no acute findings . Continue pain control with Tylenol, oxycodone stop Fexeril. Will switch to Diazepam 10mg PO BID Increase gabapentin 300mg from OID to BID Undergoing PT/OT. he is tolerating physical Therapy well #Leukocytosis(Resolved) #Primary Lateral Sclerosis Follows with [facility] neurology Primarily with R sided LE weakness and spasticity Stable - no new R sided symptoms #T2DM Metformin held Most recent A1c 6.0 - repeat ordered Has never been on insulin No Basal ordered ACHS BSG checks SSI w/ CF 25, CR 15 #HTN Continue lisinopril K+ borderline high - trend BMP, hold lisinopril if K continues to rise #HLD Continue Francis SCHMITZ: T2DM diet Code status: DNR/DNI DVT prophylaxis: Lovenox Admission and Anticipated Discharge Date Admission Date: February 19, 2025 Supervising Physician Co-Signing Physician Notes Patient seen and examined, chart reviewed, case discussed with Dr. Lopez and I agree with the assessment and plan as above except as otherwise noted above. General: A&Ox3. NAD. Cooperative. HEENT: Atraumatic, normocephalic. Pulm: Symmetrical chest rise. No increase work of breathing. No respiratory distress. Cardiac: RRR, -mrg. Radial pulses intact and symmetrical. Moves lower extremities equally. Pain improving. Tolerated therapy today. No fevers, chills, or sweats. MRI reviewed, no significant spinal disease. Presentation and progression c/w lumbar back strain. Decrease valium to daily for 02/25. Short taper as tolerated. Pending placement. Agree w/ above Subjective Patient continues to complain of back pain radiating to his left buttock. He gets occasional spasms in his back. He denies pain extending below the knee. He is tolerating physical therapy. Review of Systems Review of Systems: reviewed, per HPI Physical Exam Physical Exam: Constitutional: Well appearing, No acute distress, PILCCOD: Negative HEENT: Atraumatic, Normocephalic, No conjunctival injection CVS: S1 S2 no murmur, Regular Rhythm, no LE edema Respiratory: BL equal air entry with NVBS. No rhonchi, wheezes, or crackles. No increased work of breathing GI: Soft, Nondistended, Nontender, Normal Bowel sounds + MSK: Tenderness in lower back, paravertebral spasm + Skin: Warm, Dry, No rashes Neuro: Alert, Oriented to TPP, No Focal deficit Psych: Mood and Affect congruent, Cooperative on exam Results & Data Results & Data Vital Signs (Past 12 Hours) Vital Signs Temp Pulse Resp BP Pulse Ox O2 Del Method 02/24/25 07:29 36.4 C L 70 18 127/76 97 Room Air Resident Activity Tracking Resident Involvement: Resident Care Provided Care Provided: Adult Hospital Medicine (2) Back pain Back pain laterality: left Back pain location: low back pain Chronicity: acute Sciatica laterality: sciatica of left side Sciatica presence: with sciatica Qualified Code(s): M54.42 - Lumbago with sciatica, left side (3) Diabetes mellitus Diabetes mellitus complication status: without complication Diabetes mellitus skilled nursing insulin use: without skilled nursing use Diabetes mellitus type: type 2 Qualified Code(s): E11.9 - Type 2 diabetes mellitus without complications (8) Hypertension Hypertension type: essential hypertension Qualified Code(s): I10 - Essential (primary) hypertension (9) Hyperlipidemia Hyperlipidemia type: unspecified Qualified Code(s): E78.5 - Hyperlipidemia, unspecified
--- NOTE | 2025-02-25 08:36 | Hospitalist Progress Note ---
Date of Service February 25, 2025 Assessment & Plan (1) Ambulatory dysfunction: (2) Back pain: (3) Diabetes mellitus: (4) B12 deficiency: (5) BPH NOS w ur obs/LUTS: (6) Primary lateral scleroses: (7) Moderate obstructive sleep apnea: (8) Hypertension: (9) Hyperlipidemia: Plan 70 yo male PMHx primary lateral sclerosis with chronic RLE weakness, T2DM not on insulin, HTN, HLD, JAGDEEP, BPH w/ LUTS, history of frequent PVCs, bigeminy, chronic back pain admitted with intractable L sided back pain with radiculopathy. Admitted for pain management. Pain currently relatively well-controlled. Pending placement at rehab facility; CM has contacted [facility] #Intractable Low Back Pain / L-sciatica / Ambulatory Dysfunction - Suspect biomechanical. MRI of lumbar spine with no acute findings. - Continue pain control with Tylenol 1g TID & oxycodone 5mg q4h prn - Flexeril stopped. Will switch to Diazepam 10mg PO BID - Gabapentin increased to 300mg BID - Would benefit from weight loss; consider seeing bariatrics after d/c - Undergoing PT/OT, has been tolerating well #Leukocytosis - Resolved #Primary Lateral Sclerosis - Stable - Primarily with RLE weakness and spasticity - Follows with [facility] neurology #T2DM - stable on home regimen; has never been on insulin - Continue home Metformin 500mg BID - A1c 6.4 (increased from 6.0 last month) #HTN - Continue lisinopril - K+ borderline high on admission; improved on rechecks; Hold lisinopril if K+ continues to rise #HLD - Continue Francis SCHMITZ: T2DM diet DVT prophylaxis: Lovenox Dispo: Rehab --> consider bariatric medicine outpatient Admission and Anticipated Discharge Date Admission Date: February 19, 2025 Supervising Physician Co-Signing Physician Notes Patient seen and examined, chart reviewed, case discussed with Dr. Doran and I agree with the assessment and plan as above except as otherwise noted above. NAD. Some spasm/pain last night. Otherwise doing OK today, but does not feel safe for d/c home. Placement pending, possibly available 02/26. No acute concerns. All labs and images reviewed Subjective NAEO. Does mention having a lot of lower back/buttock pain last night, but does not want to be too reliant on pain killers, so only asked for Tylenol. When examined at bedside chair, denied any current back or LE pain, CP, SOB, n/v/c/d. Expressed great concern at prospect of going home, strong preference for at least brief stay at rehab facility. Review of Systems Review of Systems: reviewed, per HPI Physical Exam Physical Exam: Gen: WD/WN, obese, sitting comfortably in bedside chair, NAD CV: RRR, no m/r/g, S1/S2 normal, no LE edema Resp: CTAB, symmetrical chest rise, breathing non-labored Abd: Soft, NT/ND, +BS, no HSM MSK: Exam limited due to patient position; ttp at lower back; no gross deformities on inspection Skin: Warm, dry, well-perfused, no rashes appreciated Neuro: AOx3, CN II-XII grossly intact, no focal deficits Results & Data Results & Data Vital Signs (Past 12 Hours) Vital Signs Temp Pulse Resp BP Pulse Ox O2 Del Method 02/25/25 07:57 36.7 C 83 16 120/78 95 Room Air 02/24/25 23:00 36.8 C 86 17 129/76 94 Room Air Resident Activity Tracking Resident Involvement: Resident Care Provided Care Provided: Adult Hospital Medicine (2) Back pain Back pain laterality: left Back pain location: low back pain Chronicity: acute Sciatica laterality: sciatica of left side Sciatica presence: with sciatica Qualified Code(s): M54.42 - Lumbago with sciatica, left side (3) Diabetes mellitus Diabetes mellitus complication status: without complication Diabetes mellitus fdc insulin use: without computer terminal operator use Diabetes mellitus type: type 2 Qualified Code(s): E11.9 - Type 2 diabetes mellitus without complications (8) Hypertension Hypertension type: essential hypertension Qualified Code(s): I10 - Essential (primary) hypertension (9) Hyperlipidemia Hyperlipidemia type: unspecified Qualified Code(s): E78.5 - Hyperlipidemia, unspecified
--- NOTE | 2025-02-26 06:45 | Hospitalist Progress Note ---
Date of Service February 26, 2025 Assessment & Plan (1) Ambulatory dysfunction: (2) Back pain: (3) Diabetes mellitus: (4) B12 deficiency: (5) BPH NOS w ur obs/LUTS: (6) Primary lateral scleroses: (7) Moderate obstructive sleep apnea: (8) Hypertension: (9) Hyperlipidemia: Plan 70 yo male PMHx primary lateral sclerosis with chronic RLE weakness, T2DM not on insulin, HTN, HLD, JAGDEEP, BPH w/ LUTS, history of frequent PVCs, bigeminy, chronic back pain admitted with intractable L sided back pain with radiculopathy. Admitted for pain management. Pain currently relatively well-controlled. Pending placement at rehab facility; CM has contacted [facility]. #Intractable Low Back Pain / L-sciatica / Ambulatory Dysfunction - Suspect biomechanical. MRI of lumbar spine with no acute findings. - Continue pain control with Tylenol 1g TID & oxycodone 5mg q4h prn - Flexeril stopped. Will switch to Diazepam 10mg PO BID - Gabapentin increased to 300mg BID - Undergoing PT/OT, has been tolerating well - Would benefit from weight loss; consider seeing bariatrics after d/c - Patient strongly prefers at least brief stay at rehab facility prior to return home. PT assessment that most movements independent with supervision and that the patient can ambulate 125' with walker, may make placement at [facility] difficult. If so, will certainly need PT. #Leukocytosis - Resolved #Primary Lateral Sclerosis - Stable - Primarily with RLE weakness and spasticity - Follows with [facility] neurology #T2DM - stable on home regimen; has never been on insulin - Continue home Metformin 500mg BID - A1c 6.4 (increased from 6.0 last month) #HTN - Continue lisinopril - K+ borderline high on admission; improved on rechecks; Hold lisinopril if K+ continues to rise #HLD - Continue Crestor AINSLEY: T2DM diet DVT prophylaxis: Lovenox Dispo: Rehab >>> home with HH PT Admission and Anticipated Discharge Date Admission Date: February 19, 2025 Supervising Physician Co-Signing Physician Notes Patient seen and examined, chart reviewed, case discussed with Dr. Doran and I agree with the assessment and plan as above except as otherwise noted Labs and images reviewed Seen at bedside. Pending placement. Dull ache, no new complaints. Is ambulating in the hallway with some but improved pain but still persistent pain. Did offer return home with home health, patient still reports he would strongly like to pursue rehab which remains pending. No focal extremity weakness numbness or tingling. Agree with above. Subjective NAEO. Seen and examined at bedside. Slept well overnight. Did well with breakfast. Says he did take an oxy, which really helped with the pain, which is more of a dull ache now. Had son visit yesterday and expects to visit today. Has been ambulating to and using the bathroom w/o issue. No new complaints. Review of Systems Review of Systems: reviewed, per HPI Physical Exam Physical Exam: Gen: WD/WN, obese, sitting comfortably in bedside chair, NAD CV: RRR, no m/r/g, S1/S2 normal Resp: CTAB, symmetrical chest rise, breathing non-labored Abd: Soft, NT/ND, +BS, no HSM MSK: Exam limited due to patient position; ttp at lower back; no gross deformities on inspection Skin: Warm, dry, well-perfused, no rashes appreciated Neuro: AOx3, CN II-XII grossly intact, no focal deficits Results & Data Results & Data Vital Signs (Past 12 Hours) Vital Signs Temp Pulse Resp BP Pulse Ox O2 Del Method 02/25/25 22:05 36.4 C L 82 19 125/65 95 Room Air Resident Activity Tracking Resident Involvement: Resident Care Provided Care Provided: Adult Hospital Medicine (2) Back pain Back pain laterality: left Back pain location: low back pain Chronicity: acute Sciatica laterality: sciatica of left side Sciatica presence: with sciatica Qualified Code(s): M54.42 - Lumbago with sciatica, left side (3) Diabetes mellitus Diabetes mellitus complication status: without complication Diabetes mellitus half-way insulin use: without half-way use Diabetes mellitus type: type 2 Qualified Code(s): E11.9 - Type 2 diabetes mellitus without complications (8) Hypertension Hypertension type: essential hypertension Qualified Code(s): I10 - Essential (primary) hypertension (9) Hyperlipidemia Hyperlipidemia type: unspecified Qualified Code(s): E78.5 - Hyperlipidemia, unspecified
[2025-02-26 23:04] VITALS: RESP 18
--- NOTE | 2025-02-27 12:52 | Electrocardiogram Report ---
Test Reason : Blood Pressure : */* mmHG Vent. Rate : 80 BPM Atrial Rate : 80 BPM P-R Int : 170 ms QRS Dur : 82 ms QT Int : 370 ms P-R-T Axes : 58 41 49 degrees QTcB Int : 426 ms Sinus rhythm with frequent Premature ventricular complexes in a pattern of bigeminy Low voltage QRS Abnormal ECG When compared with ECG of 15-Apr-2024 09:12, Premature ventricular complexes are now Present Confirmed by Dwayne Hedrick ([id number]) on 02/27/2025 12:51:50 PM Referred By: REFERRED SELF Confirmed By: Dwayne Hedrick
--- NOTE | 2025-02-27 13:22 | Discharge Summary ---
Date of Service February 27, 2025 Admission HPI Per Admitting Provider 70 yo male PMHx primary lateral sclerosis with chronic RLE weakness, T2DM not on insulin, HTN, HLD, JAGDEEP, BPH w/ LUTS, history of frequent PVCs, bigeminy, chronic back pain admitted with intractable L sided back pain with radiculopathy. Prior to arrival the pt was attempting to get out of a vehicle and twisted his back resulting in left lower back pain with radiation down his left leg. He has exquisite pain with movement. He has no loss of strength or sensation. He has no other complaints. Denies CP, SOB, abd pain, N/V/D, loss of control of bowel or bladder function. Pain is significantly worse with movement and severe enough that the patient is unable to effectively ambulate He has long standing history of LBP. In October 2024 he had an MRI that demonstrated chronic compression fracture at L2, intervertebral height loss most prominent at L5/S1 level, among other pathology. He never followed up on this imaging. ED Course: Labs reveal leukocytosis, mild hyponatremia, otherwise labs largely unremarkable CT Lumbar Spine: Vertebrae: L1 superior endplate compression deformity of indeterminate age moderate bilateral foraminal narrowing at L1-L2 L2-L3 L3-L4 and L4-L5.Discs/spinal canal/neural foramina: No acute findings. No spinal canal stenosis. Soft tissues: Unremarkable. Received 125mg methylprednisolone, morphine, Zofran Admission Exam Per Admitting Provider Constitutional: age appropriate, obese, no acute distress HEENT: NCAT, no conjunctival injection CV: regular rhythm, no murmur appreciated, extremities well-perfused, no LE edema Resp: CTABL, no wheezes/rales/rhonchi appreciated, no increased work of breathing GI: nondistended MSK: no gross deformities appreciated, strength and sensation intact in b/l LE Skin: warm, dry, no rash appreciated Neuro: alert, oriented, no focal neurologic deficit appreciated Principal Diagnosis Low back pain Discharge Exam Gen: Alert and oriented, pleasant, comfortable appearing CV: RRR, no murmur noted Resp: CTAB, symmetrical chest rise, breathing non-labored Abd: Soft, NT/ND, active bowel sounds Skin: Warm, dry, well-perfused, no rashes appreciated Discharge Data Allergies Allergy/AdvReac Type Severity Reaction Status Date / Time aspirin Allergy Intermediate Hives Verified 02/18/25 23:14 NSAIDS (Non-Steroidal Allergy Intermediate Hives Verified 02/18/25 23:14 Anti-Inflamma tizanidine AdvReac Intermediate "made me Verified 02/18/25 23:14 feel goofy and funny" Consultations 02/19/25 00:09 ED Decision to Admit Stat 02/19/25 02:28 Consult Orthopedic Spine Surgery Routine Ordered Studies 02/18/25 22:35 CT lumbar spine wo con Stat 02/22/25 15:12 MRI Lumbar Spine [MR lumbar spine wo con] Routine Hospital Course (1) Ambulatory dysfunction: (2) Back pain: (3) Diabetes mellitus: (4) B12 deficiency: (5) BPH NOS w ur obs/LUTS: (6) Primary lateral scleroses: (7) Moderate obstructive sleep apnea: (8) Hypertension: (9) Hyperlipidemia: Plan 70 yo male PMHx primary lateral sclerosis with chronic RLE weakness, T2DM not on insulin, HTN, HLD, JAGDEEP, BPH w/ LUTS, history of frequent PVCs, bigeminy, chronic back pain admitted with intractable L sided back pain with radiculopathy. Admitted for pain management. Pain ultimately became more focal and seemed nearly purely MSK in nature and controlled with oral medications. Pt worked with PT while in the hospital and although he wanted to go to rehab on discharge he did not qualify and was thus discharged home with home services. #Intractable Low Back Pain / L-sciatica / Ambulatory Dysfunction - Suspect biomechanical. MRI of lumbar spine with no acute findings. - inpatient, treated with tylenol, gabapentin (increased from home dose), valium, and oxycodone so pt able to participate in PT - discharge with home PT/OT - discharge meds for pain; gabapentin (increased home dose 300mg daily to 300mg BID), voltaren, and prn flexeril - advised to f/u with PCP within 1 week of discharge #Primary Lateral Sclerosis - Stable - Primarily with RLE weakness and spasticity - Follows with [facility] neurology Total Time Total Time Spent Total Time Spent (In Minutes): As per attending attestation. Discharge Plan Discharge Items Patient Disposition: Home - Self-Care Reason For Visit: AMBULATORY DYSFUNCTION, LLB PAIN W/ RADICULOPATHY Discharge Diagnosis: Biomechanical back pain Condition on Discharge: Fair Activity: Per Instructions section Non-emergency contact: Primary Care Provider Call non-emergency contact if: you have any medication questions, your symptoms worsen, your pain is not controlled and your pain is worsening Follow-up/Referrals: Brando Mueller CRNP [Primary Care Provider] - 03/10/25 8:15 am (03/10/25 at 8:15 with Milla Marroquin) Diet: Regular Addtl Attending Provider Instructions: You came in hospital with acute lower back pain. CT scan of spine was done which showed some compression deformities in your vertebra, but no acute findings like fracture or spinal canal stenosis was seen. Due to that, your back pain is likely biomechanical, meaning due to very tight muscles that compensate that can occur when underlying structures get irritated or with difficulty walking or abnormal walking due to any injuries or long-standing issues in your legs like knee pain/arthritis. You will benefit from physical therapy and pain management as needed. Stretching and moving the muscles will help them to loosen up, and thus be less painful. Anticipate continuing to do the exercises that physical therapy has given you daily for at least the next few months, although consistent daily exercise and stretching will decrease the chance of the pain flaring up again and may help to resolve the pain altogether. Medication -We have sent a new medication called Cyclobenzaprine to your pharmacy, which is a muscle relaxer. Please take Cyclobenzaprine as needed, up to 3 times a day (8 hrs apart) for back pain or muscle spasm. This medication may make you drowsy, so avoid heavy machinery while using this. -We have also sent a new medication called Voltaren gel to your pharmacy. Please apply Voltaren gel 4 times a day(6 hrs apart) as needed over your back for back pain. -We have increased the dose of gabapentin from 300mg once a day to 300mg two times a day. Please take gabapentin two times a day until you followup with your primary care provider. -Please take Tylenol as needed for pain, up to 1000mg three times a day. Followup -Please followup with your primary care provider within a week from hospital discharge. Pending Studies at Discharge: No Stand-Alone Forms: My a[employer], Smoking Cessation Medications and DC Order Prescriptions: New acetaminophen [Tylenol Extra Strength] 500 mg Tablet 1,000 mg PO TID 5 Days Qty: 30 0RF gabapentin 300 mg Capsule 300 mg PO BID 15 Days Qty: 30 0RF cyclobenzaprine 5 mg Tablet 5 mg PO Q8 PRN (Reason: muscle spasm) 5 Days Qty: 20 0RF diclofenac sodium [Voltaren Arthritis Pain] 1 % Gel 4 g EXT QID 10 Days Qty: 100 1RF Continued cholecalciferol (vitamin D3) 25 mcg (1,000 unit) capsule 50 mcg PO DAILY lisinopril 10 mg tablet 10 mg PO QAM Qty: 90 3RF Rx Instructions: TAKE 1 TABLET EVERY DAY metformin 500 mg tablet 500 mg PO BID Qty: 180 1RF rosuvastatin 5 mg tablet 5 mg PO HS Qty: 90 3RF cyanocobalamin (vitamin B-12) [Vitamin B-12] 1,000 mcg Tablet 1,000 mcg PO DAILY Discontinued gabapentin 300 mg capsule 300 mg PO HS Discharge Orders: Discharge Order (Routine); Ordered 02/27/25 Ordered By: Leni Velasquez/Other Patient Handouts: Managing Type 2 Diabetes Admission Data Admit Date/Time: 02/19/25 01:01 Attending Provider: Ye Stewart Admit Provider: Tawanda Delgado Primary Care Provider: Brando Mueller Other Providers: Chester Knox; Donal Forde; [facility]; [facility]; [facility] Other Interventions: Discharge Summary Assessment (RN) Last Done: 02/27/25 15:03 Supervising Physician Co-Signing Physician Notes Resident Physician Supervision Note: I personally examined the patient and verified all dang points of history and exam, discussed case, and agree with decision making with Dr. Lee I discussed the case with the resident and agree with the findings and plan as documented in the note. Any exceptions or clarifications are listed here: None Patient was seen independently while awaiting the decision for insurance to consider subacute rehab. Patient did ambulate successfully in the [place] significant distance and he feels he is able to go home. Patient's back discomfort has improved and he will be discharged home on Flexeril Documented By: Ye Stewart MD Resident Activity Tracking Resident Involvement: Resident Care Provided Care Provided: Adult Hospital Medicine
[2025-02-27 15:12] VITALS: BP 149/84; PULSE 99; TEMP 97.7; O2SAT 94
--- NOTE | 2025-02-27 18:46 | Billing Data ---
Date of Service February 27, 2025 Coding Level of Care Code 23496 IN/OBS DISCH 30 MIN/LESS
--- NOTE | 2025-03-02 10:22 | Billing Data ---
Date of Service February 24, 2025 Coding Level of Care Code 72900 SUB INP/OBS CARE
--- NOTE | 2025-03-02 10:23 | Billing Data ---
Date of Service February 26, 2025 Coding Level of Care Code 14382 SUB INP/OBS CARE
--- NOTE | 2025-03-02 10:23 | Billing Data ---
Date of Service February 25, 2025 Coding Level of Care Code 24926 SUB INP/OBS CARE
== END 2025-02-27 18:05 | disposition home or self-care (01) | DRG 552 ==
LOC: ED 22:28 → INTOOBSV 02-19 01:01 → SUATTDRO 02-19 01:01 → 3N 02-19 01:01